=== PATIENT | male | born 1980 | race Caucasian/White ===

== ENCOUNTER 2017-06-13 18:57 | Emergency (ER) | payer OTHER ==
[2017-06-13 19:12] VITALS: BP 166/91; PULSE 94; RESP 18; TEMP 98.2
[2017-06-13] MEDS ORDERED: DIPH,PERTUS(ACELL)TETVAC-LF 0.5 ML VIAL IM ONE (19:16)
--- NOTE | 2017-06-13 19:37 | ED ---
General Adult HPI - General Chief complaint: Wound/Laceration Stated complaint: Dog Bite Time Seen by Provider: 06/13/17 19:09 Source: patient, RN notes reviewed Mode of arrival: ambulatory Limitations: no limitations - History of Present Illness Initial comments: 37-year-old male presents to the emergency department with a chief complaint of right wrist laceration/dog bite. Patient was bit by a pit bull today. He does not recall his last tetanus. The dog is up-to-date on vaccinations. He states he has pain to the right basal he thought that he should be seen. Patient denies any other injuries at this time.Patient denies any recent fever, chills, shortness of breath, chest pain, back pain, abdominal pain, nausea vomiting, numbness or tingling, dysuria or hematuria, constipation or diarrhea, headaches or visual changes, or any other current symptoms. - Related Data Home Medications Medication Instructions Recorded Confirmed Dextroamphetamine/Amphetamine 20 mg PO TID 11/30/15 08/24/16 [Adderall] Previous Rx's Medication Instructions Recorded Famotidine [Pepcid] 20 mg PO BID #10 tablet 08/24/16 hydrOXYzine HCL [Atarax] 25 mg PO QID PRN #30 tab 08/24/16 predniSONE 20 mg PO BID #10 tab 08/24/16 Amoxicillin/Potassium Clav 1 tab PO Q12HR #20 tab 06/13/17 [Augmentin 875-125 Tablet] Allergies Allergy/AdvReac Type Severity Reaction Status Date / Time OLD SPICE DEODORANT AdvReac Rash/Hives Uncoded 06/13/17 19:12 Review of Systems ROS Statement: Those systems with pertinent positive or pertinent negative responses have been documented in the HPI. ROS Other: All systems not noted in ROS Statement are negative. Past Medical History Past Medical History: Asthma Additional Past Medical History / Comment(s): ULCERATIVE COLITIS History of Any Multi-Drug Resistant Organisms: None Reported Past Surgical History: Appendectomy Past Psychological History: ADD/ADHD Smoking Status: Never smoker Past Alcohol Use History: None Reported Past Drug Use History: None Reported General Exam - General Exam Comments Initial Comments: General: The patient is awake and alert, in no distress, and does not appear acutely ill. Neck: The neck is supple, there is no tenderness. Cardiovascular: There is a regular rate and rhythm. No murmur, rub or gallop is appreciated. Respiratory: Lungs are clear to auscultation, respirations are non-labored, breath sounds are equal. No wheezes, stridor, rales, or rhonchi. Musculoskeletal: Sensation intact with 2+ pulses. Extremities range of motion of the right elbow. Patient has pain and a 0.5 from a laceration to the right wrist. No tenderness over the medial or lateral aspects. Full range of motion of the right hand. Neurological: CN II-XII intact, There are no obvious motor or sensory deficits. Coordination appears grossly intact. Speech is normal. Skin: Skin is warm and dry and no rashes or lesions are noted. Psychiatric: Normal mood and affect. Limitations: no limitations Course Vital Signs 06/13/17 19:09 Temperature 98.2 F Pulse Rate 94 Respiratory 18 Rate Blood Pressure 166/91 O2 Sat by Pulse 94 L Oximetry Medical Decision Making - Medical Decision Making 37-year-old male presents to the right wrist. This time we discussed care of the laceration was then given antibiotics. We did thoroughly irrigate the area. The patient stated that he understood and he is given plan. All questions have been answered. Essentially discharged. - Radiology Data Radiology results: report reviewed, image reviewed Disposition Clinical Impression: Dog bite of right wrist Disposition: HOME SELF-CARE Condition: Stable Instructions: Animal Bite (ED) Additional Instructions: Please use medication as discussed. Please follow up with family doctor if symptoms have not improved over the next two days. Please return to the emergency room if your symptoms increase or worsen or for any other concerns. Prescriptions: Amoxicillin/Potassium Clav [Augmentin 875-125 Tablet] 1 tab PO Q12HR #20 tab Referrals: Odilia Granda MD [STAFF PHYSICIAN] - 1-2 days Time of Disposition: 19:43
--- NOTE | 2017-06-13 19:42 | XR ---
EXAMINATION TYPE: XR wrist complete RT DATE OF EXAM: 06/13/2017 COMPARISON: NONE HISTORY: Laceration TECHNIQUE: 4 views FINDINGS: I see no fracture nor dislocation. Carpal bones are intact. Joint spaces are normal. IMPRESSION: Negative right wrist exam.
== END 2017-06-13 19:48 | disposition home or self-care (01) ==
LOC: EC 18:57
DX: S61.511A Laceration without foreign body of right wrist, initial encounter (principal); F90.9 Attention-deficit hyperactivity disorder, unspecified type; Z23 Encounter for immunization; Z91.09 Other allergy status, other than to drugs and biological substances; Z79.899 Other long term (current) drug therapy; W54.0XXA Bitten by dog, initial encounter
CPT/HCPCS: 90471; 90715; 99283

== ENCOUNTER 2018-02-25 21:13 | Emergency (ER) | payer OTHER ==
[2018-02-25] MEDS ORDERED: ONDANSETRON 4 MG/2 ML VIAL IVP STA (22:16)
[2018-02-25] MEDS ORDERED: SODIUM CHLORIDE 0.9% 1,000 ML IV STA ×2 (22:16)
[2018-02-25] MEDS ORDERED: KETOROLAC 30 MG/ML 1 ML VIAL IVP STA (22:18)
[2018-02-25 22:37] LABS: Basophils # (A) 0.1 k/uL (0-0.2); Basophils % (A) 1 %; Eosinophils # (A) 0.3 k/uL (0-0.7); Eosinophils % (A) 6 %; HCT 46.5 % (39.0-53.0); HGB 15.9 gm/dL (13.0-17.5); Lymphocytes # (A) 1.9 k/uL (1.0-4.8); Lymphocytes % (A) 33 %; MCH 28.1 pg (25.0-35.0); MCHC 34.1 g/dL (31.0-37.0); MCV 82.3 fL (80.0-100.0); Mean Platelet Volume 6.4; Monocytes # (A) 0.3 k/uL (0-1.0); Monocytes % (A) 6 %; Neutrophils # (A) 3.1 k/uL (1.3-7.7); Neutrophils % (A) 53 %; Platelet Count 239 k/uL (150-450); RBC 5.66 m/uL (4.30-5.90); RDW 12.9 % (11.5-15.5); WBC 5.8 k/uL (3.8-10.6)
[2018-02-25 22:49] LABS: ALT 40 U/L (21-72); AST 29 U/L (17-59); Albumin 4.6 g/dL (3.5-5.0); Alkaline Phosphatase 55 U/L (38-126); Amylase 41 U/L (30-110); Anion Gap 13 mmol/L; Blood Urea Nitrogen 20 mg/dL (9-20); Calcium 9.2 mg/dL (8.4-10.2); Carbon Dioxide 29 mmol/L (22-30); Chloride 100 mmol/L (98-107); Glucose 88 mg/dL (74-99); Lipase 22 U/L (23-300); Potassium 3.4 mmol/L (3.5-5.1); Sodium 142 mmol/L (137-145); Total Protein 7.2 g/dL (6.3-8.2)
--- NOTE | 2018-02-25 23:07 | XR ---
EXAMINATION TYPE: XR KUB DATE OF EXAM: 02/25/2018 COMPARISON: NONE HISTORY: Nausea and vomiting TECHNIQUE: 2 views FINDINGS: There is no sign of intestinal obstruction or pneumoperitoneum. Bowel gas pattern is normal . Fecal pattern is normal. There are no pathologic calcifications over the kidneys. Lung bases are cl ear. IMPRESSION: Nonacute abdomen.
--- NOTE | 2018-02-25 23:07 | XR ---
EXAMINATION TYPE: XR lumbar spine 2 or 3V DATE OF EXAM: 02/25/2018 COMPARISON: NONE HISTORY: Nausea and vomiting TECHNIQUE: 3 views FINDINGS: Lumbar vertebra have normal spacing and alignment. Posterior elements are intact. Sacroilia c joints appear normal. IMPRESSION: Normal lumbar spine exam.
[2018-02-25 23:17] VITALS: RESP 18
--- NOTE | 2018-02-25 23:27 | ED ---
Nausea/Vomiting/Diarrhea HPI - General Chief complaint: Nausea/Vomiting/Diarrhea Stated complaint: nausea/vomiting Time Seen by Provider: 02/25/18 22:00 Source: patient, RN notes reviewed, old records reviewed Mode of arrival: wheelchair Limitations: no limitations - History of Present Illness Initial comments: 37-year-old male presents with one evening of nausea and vomiting. Also complains of lower back pain. Patient has had a stressful week after his siblings were diagnosed with stroke. Patient states that he has no specific abdominal pain. He denies any hematuria. He stated the back pain is worse with movement. When I walked into the exam room he was actively vomiting. - Related Data Home Medications Medication Instructions Recorded Confirmed Dextroamphetamine/Amphetamine 20 mg PO TID 11/30/15 08/24/16 [Adderall] Previous Rx's Medication Instructions Recorded Famotidine [Pepcid] 20 mg PO BID #10 tablet 08/24/16 hydrOXYzine HCL [Atarax] 25 mg PO QID PRN #30 tab 08/24/16 predniSONE 20 mg PO BID #10 tab 08/24/16 Amoxicillin/Potassium Clav 1 tab PO Q12HR #20 tab 06/13/17 [Augmentin 875-125 Tablet] Ondansetron Odt [Zofran Odt] 4 mg PO Q8HR PRN #12 tab 02/26/18 Allergies Allergy/AdvReac Type Severity Reaction Status Date / Time OLD SPICE DEODORANT AdvReac Rash/Hives Uncoded 06/13/17 19:12 Review of Systems ROS Statement: Those systems with pertinent positive or pertinent negative responses have been documented in the HPI. ROS Other: All systems not noted in ROS Statement are negative. Past Medical History Past Medical History: Asthma Additional Past Medical History / Comment(s): ULCERATIVE COLITIS, pts reports one time seizure 2014 History of Any Multi-Drug Resistant Organisms: None Reported Past Surgical History: Appendectomy Past Psychological History: ADD/ADHD Smoking Status: Never smoker Past Alcohol Use History: None Reported Past Drug Use History: None Reported General Exam - General Exam Comments Initial Comments: This is a 37 year old male, no acute distress. Limitations: no limitations General appearance: alert, in no apparent distress Head exam: Present: atraumatic, normocephalic, normal inspection Eye exam: Present: normal appearance, PERRL, EOMI. Absent: scleral icterus, conjunctival injection, periorbital swelling ENT exam: Present: normal exam, mucous membranes moist Neck exam: Present: normal inspection. Absent: tenderness, meningismus, lymphadenopathy Respiratory exam: Present: normal lung sounds bilaterally. Absent: respiratory distress, wheezes, rales, rhonchi, stridor Cardiovascular Exam: Present: regular rate, normal rhythm, normal heart sounds. Absent: systolic murmur, diastolic murmur, rubs, gallop, clicks GI/Abdominal exam: Present: soft, normal bowel sounds. Absent: distended, tenderness, guarding, rebound, rigid Extremities exam: Present: normal inspection, full ROM, normal capillary refill. Absent: tenderness, pedal edema, joint swelling, calf tenderness Back exam: Present: normal inspection Neurological exam: Present: alert, oriented X3, CN II-XII intact Psychiatric exam: Present: normal affect, normal mood Skin exam: Present: warm, dry, intact, normal color. Absent: rash Course Vital Signs 02/25/18 02/25/18 02/26/18 21:24 23:15 00:44 Temperature 97.4 F L 97.1 F L Pulse Rate 94 81 70 Respiratory 16 18 18 Rate Blood Pressure 129/84 122/62 125/64 O2 Sat by Pulse 98 98 96 Oximetry Medical Decision Making - Medical Decision Making 37-year-old male presents with nausea and vomiting. Also complains and can't go back pain. Patient's lab work was reviewed and I remarkable. Your analysis shows no hematuria. Patient was given Toradol and Zofran and is feeling much better. At this time he says he would like to go home. Discussed appropriate follow-up. - Lab Data Result diagrams: 02/25/18 22:25 02/25/18 22:25 Lab Results 02/25/18 02/25/18 02/25/18 Range/Units 22:25 22:25 23:51 WBC 5.8 (3.8-10.6) k/uL RBC 5.66 (4.30-5.90) m/uL Hgb 15.9 (13.0-17.5) gm/dL Hct 46.5 (39.0-53.0) % MCV 82.3 (80.0-100.0) fL MCH 28.1 (25.0-35.0) pg MCHC 34.1 (31.0-37.0) g/dL RDW 12.9 (11.5-15.5) % Plt Count 239 (150-450) k/uL Neutrophils % 53 % Lymphocytes % 33 % Monocytes % 6 % Eosinophils % 6 % Basophils % 1 % Neutrophils # 3.1 (1.3-7.7) k/uL Lymphocytes # 1.9 (1.0-4.8) k/uL Monocytes # 0.3 (0-1.0) k/uL Eosinophils # 0.3 (0-0.7) k/uL Basophils # 0.1 (0-0.2) k/uL Sodium 142 (137-145) mmol/L Potassium 3.4 L (3.5-5.1) mmol/L Chloride 100 (98-107) mmol/L Carbon Dioxide 29 (22-30) mmol/L Anion Gap 13 mmol/L BUN 20 (9-20) mg/dL Creatinine 0.77 (0.66-1.25) mg/dL Est GFR (CKD-EPI)AfAm >90 (>60 ml/min/1.73 sqM) Est GFR (CKD-EPI)NonAf >90 (>60 ml/min/1.73 sqM) Glucose 88 (74-99) mg/dL Calcium 9.2 (8.4-10.2) mg/dL Total Bilirubin 1.0 (0.2-1.3) mg/dL AST 29 (17-59) U/L ALT 40 (21-72) U/L Alkaline Phosphatase 55 (38-126) U/L Total Protein 7.2 (6.3-8.2) g/dL Albumin 4.6 (3.5-5.0) g/dL Amylase 41 (30-110) U/L Lipase 22 L (23-300) U/L Urine Color Yellow Urine Appearance Clear (Clear) Urine pH 6.0 (5.0-8.0) Ur Specific [place] 1.029 (1.001-1.035) Urine Protein Trace H (Negative) Urine Glucose (UA) Negative (Negative) Urine Ketones 1+ H (Negative) Urine Blood Negative (Negative) Urine Nitrite Negative (Negative) Urine Bilirubin Negative (Negative) Urine Urobilinogen <2.0 (<2.0) mg/dL Ur Leukocyte Esterase Negative (Negative) - Radiology Data Radiology results: report reviewed Can you please review the negative for any acute process. Lumbar spine x-ray showed no fractures. Disposition Clinical Impression: Nausea & vomiting, Back pain Disposition: HOME SELF-CARE Condition: Good Instructions: Acute Nausea and Vomiting (ED) Additional Instructions: Patient has developed with primary care provider. Return to emergency department if any alarming signs or symptoms occur. Prescriptions: Ondansetron Odt [Zofran Odt] 4 mg PO Q8HR PRN #12 tab PRN Reason: Nausea Is patient prescribed a controlled substance at d/c from ED?: No When asked, does pt state using other controlled substances?: No If prescribed controlled substance>3 days was MAPS reviewed?: No If opioid is for acute pain is fill amount 7 days or less?: No If Rx opioid, was Start Talking consent form obtained?: No Referrals: None,Stated [Primary Care Provider] - 1-2 days Bhavik Keenan MD [STAFF PHYSICIAN] - 1-2 days Time of Disposition: 00:29
[2018-02-26 00:05] LABS: Appearance,Urine Clear (Clear); Bilirubin,Urine Negative (Negative); Blood,Urine Negative (Negative); Color,Urine Yellow; Glucose,Urine (UA) Negative (Negative); Ketones,Urine 1+ (Negative); Leukocyte Esterase,Urine Negative (Negative); Nitrite,Urine Negative (Negative); Protein,Urine Trace (Negative); Specific Gravity,Urine 1.029 (1.001-1.035); Urobilinogen,Urine <2.0 mg/dL (<2.0)
[2018-02-26 00:45] VITALS: BP 125/64; PULSE 70; TEMP 97.1
== END 2018-02-26 00:45 | disposition home or self-care (01) ==
LOC: EC 21:13
DX: R11.2 Nausea with vomiting, unspecified (principal); M54.5 Low back pain; F90.9 Attention-deficit hyperactivity disorder, unspecified type; Z90.49 Acquired absence of other specified parts of digestive tract; Z79.899 Other long term (current) drug therapy; Z91.048 Other nonmedicinal substance allergy status
CPT/HCPCS: 99284; 96374; 96375; 96361 ×2; 36415; 80053; 82150; 83690; 85025; 81003; 72100; 74018; J2405; J1885

== ENCOUNTER 2018-05-01 01:13 | Observation (INO) | payer OTHER ==
[2018-05-01] MEDS ORDERED: SODIUM CHLORIDE 0.9% 1,000 ML IV STA (02:33)
[2018-05-01] MEDS ORDERED: ONDANSETRON 4 MG/2 ML VIAL IVP STA (02:33)
[2018-05-01] MEDS ORDERED: MORPHINE SULFATE 4 MG/ML SYRINGE IV STA (02:33)
--- NOTE | 2018-05-01 02:37 | ED ---
Abdominal Pain HPI - General Source: patient Mode of arrival: wheelchair Limitations: no limitations <Sanam Hwang - Last Filed: 05/01/18 04:19> <Arnie Gutierrez - Last Filed: 05/01/18 04:33> - General Chief Complaint: Abdominal Pain Stated Complaint: rib pain,swelling,blood in stool Time Seen by Provider: 05/01/18 01:35 - History of Present Illness Initial Comments: 38-year-old male patient presents the emergency department today for evaluation of left sided mid back pain and lower back pain. Patient states that pain started around 9 PM this evening. Patient states the pain has been severe. Patient states that he has been vomiting over the last couple of days. Patient states he did take ibuprofen and [place] without relief of symptoms. Patient states that he did have a bowel movement the did have a presence of a small amount of blood. Patient states that his anus feels numb. Patient does have a history of chronic back issues but has never experienced any thing like this before. Patient denies any numbness or tingling radiating down his legs. Denies any loss of bowel or bladder control. Denies any saddle anesthesia. Denies any fevers or chills. He denies any abdominal pain with this. States he has been urinating frequently. Patient denies any recent rash, shortness breath , chest pain, abdominal pain, dizziness, weakness, hematuria, dysuria, urinary urgency, headache, visual changes, or any other complaints. (Sanam Hwang) - Related Data Home Medications Medication Instructions Recorded Confirmed No Known Home Medications 05/01/18 05/01/18 Allergies Allergy/AdvReac Type Severity Reaction Status Date / Time OLD SPICE DEODORANT AdvReac Rash/Hives Uncoded 05/01/18 01:24 Review of Systems ROS Other: All systems not noted in ROS Statement are negative. <Sanam Hwang - Last Filed: 05/01/18 04:19> ROS Other: All systems not noted in ROS Statement are negative. <Arnie Gutierrez - Last Filed: 05/01/18 04:33> ROS Statement: Those systems with pertinent positive or pertinent negative responses have been documented in the HPI. Past Medical History Past Medical History: Asthma Additional Past Medical History / Comment(s): ULCERATIVE COLITIS, pts reports one time seizure 2014 History of Any Multi-Drug Resistant Organisms: None Reported Past Surgical History: Appendectomy Past Psychological History: ADD/ADHD Smoking Status: Never smoker Past Alcohol Use History: None Reported Past Drug Use History: None Reported <Sanam Hwang Dez - Last Filed: 05/01/18 04:19> General Exam Limitations: no limitations General appearance: alert, in no apparent distress, other (Physical well- developed, well-nourished male patient in mild distress related to pain. Vital signs upon presentation are temperature 98.3F, pulse 129, respirations 22, blood pressure 135/95, pulse ox 98% on room air.) Eye exam: Present: normal appearance, PERRL, EOMI. Absent: scleral icterus, conjunctival injection, periorbital swelling ENT exam: Present: normal exam, normal oropharynx, mucous membranes moist Respiratory exam: Present: normal lung sounds bilaterally. Absent: respiratory distress, wheezes, rales, rhonchi, stridor Cardiovascular Exam: Present: regular rate, normal rhythm, normal heart sounds. Absent: systolic murmur, diastolic murmur, rubs, gallop, clicks GI/Abdominal exam: Present: soft, normal bowel sounds. Absent: distended, tenderness, guarding, rebound, rigid Rectal exam: Present: decreased rectal tone Back exam: Present: normal inspection, CVA tenderness (R), vertebral tenderness (lumbar). Absent: CVA tenderness (L) Neurological exam: Present: alert, oriented X3, CN II-XII intact Expanded Motor strength exam: RUE: 5, LUE: 5, RLE: 5, LLE: 5 Psychiatric exam: Present: normal affect, normal mood Skin exam: Present: warm, dry, intact, normal color. Absent: rash <Sanam Hwang M - Last Filed: 05/01/18 04:19> Vital Signs 05/01/18 01:21 Temperature 98.3 F Pulse Rate 129 H Respiratory 22 Rate Blood Pressure 135/95 O2 Sat by Pulse 98 Oximetry Medical Decision Making - Lab Data Result diagrams: 05/01/18 01:55 05/01/18 01:55 - Radiology Data Radiology results: report reviewed, image reviewed <Sanam Hwang - Last Filed: 05/01/18 04:19> - Lab Data Result diagrams: 05/01/18 01:55 05/01/18 01:55 <Arnie Gutierrez - Last Filed: 05/01/18 04:33> - Medical Decision Making 38 year-old male patient presented to the emergency department today for evaluation of left sided back pain from his ribs down, and pain across his lower back. Patient also reported radicular pain to the left leg and perianal numbness. Physical exam was significant for lumbar tenderness and decreased rectal tone. Labs were reviewed and were unremarkable. CT abdomen and pelvis to include the lumbar spine showed no acute abnormalities. Upon re-evaluation patient remains quite uncomfortable. Still reports perianal numbness. Given physical exam findings we will admit patient with orthopedic consult. IV pain medications and steroids will be provided. Patient is made aware of plan and is agreeable. (Sanam Hwang) Patient reevaluated by myself, Dr. Gutierrez. Patient resting comfortably in bed. Patient denies weakness however states he does have significant back discomfort. Patient states this is not like his previous back discomfort. Discomfort is in the lumbar region and lateral as well as somewhat in the CVA region. Patient states discomfort is positional. I reviewed and agree with PA findings. This includes all diagnostics limitations and treatment plan. Computed tomography scan results was reviewed. Secondary to patient having somewhat decreased rectal tone on exam and patient will be admitted with consult with orthopedics. Case was discussed in detail with Dr. Contreras, who will admit for hospital call. Patient was updated. (Arnie Gutierrez) - Lab Data Lab Results 05/01/18 05/01/18 05/01/18 Range/Units 01:55 01:55 03:18 WBC 9.0 (3.8-10.6) k/uL RBC 5.55 (4.30-5.90) m/uL Hgb 15.4 (13.0-17.5) gm/dL Hct 44.6 (39.0-53.0) % MCV 80.4 (80.0-100.0) fL MCH 27.8 (25.0-35.0) pg MCHC 34.6 (31.0-37.0) g/dL RDW 12.3 (11.5-15.5) % Plt Count 280 (150-450) k/uL Neutrophils % 66 % Lymphocytes % 25 % Monocytes % 6 % Eosinophils % 2 % Basophils % 1 % Neutrophils # 5.9 (1.3-7.7) k/uL Lymphocytes # 2.3 (1.0-4.8) k/uL Monocytes # 0.5 (0-1.0) k/uL Eosinophils # 0.2 (0-0.7) k/uL Basophils # 0.0 (0-0.2) k/uL Sodium 140 (137-145) mmol/L Potassium 4.0 (3.5-5.1) mmol/L Chloride 102 (98-107) mmol/L Carbon Dioxide 26 (22-30) mmol/L Anion Gap 12 mmol/L BUN 16 (9-20) mg/dL Creatinine 1.00 (0.66-1.25) mg/dL Est GFR (CKD-EPI)AfAm >90 (>60 ml/min/1.73 sqM) Est GFR (CKD-EPI)NonAf >90 (>60 ml/min/1.73 sqM) Glucose 128 H (74-99) mg/dL Calcium 9.9 (8.4-10.2) mg/dL Total Bilirubin 0.8 (0.2-1.3) mg/dL AST 33 (17-59) U/L ALT 36 (21-72) U/L Alkaline Phosphatase 54 (38-126) U/L Total Protein 7.8 (6.3-8.2) g/dL Albumin 4.9 (3.5-5.0) g/dL Amylase 45 (30-110) U/L Lipase 15 L (23-300) U/L Urine Color Yellow Urine Appearance Clear (Clear) Urine pH 7.0 (5.0-8.0) Ur Specific [place] 1.022 (1.001-1.035) Urine Protein Trace H (Negative) Urine Glucose (UA) Negative (Negative) Urine Ketones Trace H (Negative) Urine Blood Negative (Negative) Urine Nitrite Negative (Negative) Urine Bilirubin Negative (Negative) Urine Urobilinogen <2.0 (<2.0) mg/dL Ur Leukocyte Esterase Negative (Negative) - Radiology Data CT abdomen and pelvis without contrast was obtained. Report was reviewed in its entirety. Impression by doctor Jada shows no acute findings. (Sanam Hwang) Disposition Decision to Admit Reason: Admit from [facility] Decision Date: 05/01/18 Decision Time: 04:25 <Sanam Hwang - Last Filed: 05/01/18 04:19> <Arnie Gutierrez - Last Filed: 05/01/18 04:33> Clinical Impression: Intractable low back pain, Decreased rectal sphincter tone Disposition: ADMITTED IP TO THIS HOSP Condition: Serious Referrals: None,Stated [Primary Care Provider] - 1-2 days
[2018-05-01 02:41] LABS: Basophils % (A) 1 %; Eosinophils # (A) 0.2 k/uL (0-0.7); Eosinophils % (A) 2 %; HCT 44.6 % (39.0-53.0); HGB 15.4 gm/dL (13.0-17.5); Lymphocytes # (A) 2.3 k/uL (1.0-4.8); Lymphocytes % (A) 25 %; MCH 27.8 pg (25.0-35.0); MCHC 34.6 g/dL (31.0-37.0); MCV 80.4 fL (80.0-100.0); Mean Platelet Volume 7.2; Monocytes # (A) 0.5 k/uL (0-1.0); Monocytes % (A) 6 %; Neutrophils # (A) 5.9 k/uL (1.3-7.7); Neutrophils % (A) 66 %; Platelet Count 280 k/uL (150-450); RBC 5.55 m/uL (4.30-5.90); RDW 12.3 % (11.5-15.5)
[2018-05-01 02:52] LABS: ALT 36 U/L (21-72); AST 33 U/L (17-59); Albumin 4.9 g/dL (3.5-5.0); Alkaline Phosphatase 54 U/L (38-126); Amylase 45 U/L (30-110); Anion Gap 12 mmol/L; Blood Urea Nitrogen 16 mg/dL (9-20); Calcium 9.9 mg/dL (8.4-10.2); Carbon Dioxide 26 mmol/L (22-30); Chloride 102 mmol/L (98-107); Glucose 128 mg/dL (74-99); Lipase 15 U/L (23-300); Sodium 140 mmol/L (137-145); Total Bilirubin 0.8 mg/dL (0.2-1.3); Total Protein 7.8 g/dL (6.3-8.2)
--- NOTE | 2018-05-01 03:19 | XR ---
EXAMINATION TYPE: XR KUB DATE OF EXAM: 05/01/2018 COMPARISON: 02/17/2018 HISTORY: Flank pain TECHNIQUE: 2 views upright FINDINGS: There is no sign of intestinal obstruction or pneumoperitoneum. Fecal pattern is normal. Ka[place] ng bases are clear. There are no pathologic calcifications. IMPRESSION: Nonacute abdomen. No change.
[2018-05-01 03:34] LABS: Appearance,Urine Clear (Clear); Bilirubin,Urine Negative (Negative); Blood,Urine Negative (Negative); Color,Urine Yellow; Glucose,Urine (UA) Negative (Negative); Ketones,Urine Trace (Negative); Leukocyte Esterase,Urine Negative (Negative); Nitrite,Urine Negative (Negative); Protein,Urine Trace (Negative); Specific Gravity,Urine 1.022 (1.001-1.035); Urobilinogen,Urine <2.0 mg/dL (<2.0)
--- NOTE | 2018-05-01 04:08 | CT ---
EXAMINATION TYPE: CT abdomen pelvis wo con DATE OF EXAM: 05/01/2018 COMPARISON: None HISTORY: Pt. c/o LUQ pain and back pain CT DLP: 583.80 mGycm Automated exposure control for dose reduction was used. TECHNIQUE: Helical acquisition of images was performed from the lung bases through the pelvis. FINDINGS: Lung bases are clear. There is no pleural effusion. Heart size is normal. Liver spleen pancreas gallbladder appear normal. Bile ducts are not dilated. There is no adrenal mass. Kidneys show normal size and contour. There is no hydronephrosis. There is no retroperitoneal adenopathy. Bladder distends smoothly. There is no pelvic mass. There is no ascites. There is no free air. There is no intestinal wall thickening. There are no dilated loops. Appendix is not seen. There is no sign of appendicitis. The lumbar vertebra have normal spacing and alignment. Posterior elements are intact. There is no com pression fracture. There is no sign of lumbar spinal stenosis. IMPRESSION: NEGATIVE CT SCAN OF THE ABDOMEN AND PELVIS.
[2018-05-01] MEDS ORDERED: methylPREDNISolone SOD SUCCI 125 MG/2 ML VIAL IV STA (04:18)
[2018-05-01] MEDS ORDERED: NALOXONE 0.4 MG/ML 1 ML VIAL IV PRN (04:19)
[2018-05-01] MEDS ORDERED: KETOROLAC 30 MG/ML 1 ML VIAL IVP PRN (04:19)
[2018-05-01 05:24] VITALS: BMI 25.9
[2018-05-01] MEDS: methylPREDNISolone SOD SUCCI 125 MG/2 ML VIAL IV SCH ×4 (05:34→23:40)
[2018-05-01] MEDS: SODIUM CHLORIDE 0.9% 1,000 ML IV SCH (05:34)
[2018-05-01] MEDS: HYDROcodone/APAP 5-325MG 1 EACH TAB PO PRN ×5 (05:35→21:53)
--- NOTE | 2018-05-01 07:12 | HP ---
HISTORY AND PHYSICAL CHIEF COMPLAINT: A 38-year-old white male with left-sided midback pain, low back pain, came in to the emergency room due to severity. He is unable to have much of any relief to his back so he came to the emergency room. He did have a bowel movement. He had a small amount of blood in it he states, but mainly his legs are numb. His anus is numb. History of chronic back pain. Never experienced anything like this before. Denies any loss of bowel or bladder control or any , any fevers or chills negative. No abdominal pain, urinary frequency. No shortness of breath. No rashes, abdominal pain, weakness, dysuria, frequency, urgency, hesitancy, or visual changes. Urinalysis is negative on admission for UTI. He is admitted for neurosurgical evaluation for lack of to his anus and severe intractable back pain. Neurosurgical consultation. He is on home medications. Allergies are to OLD SPICE DEODORANT. REVIEW OF SYSTEMS: Fourteen point review of systems negative except for mentioned in HPI. PAST MEDICAL HISTORY: Asthma, ulcerative colitis and a seizure in 2014 one time. SURGERIES: Appendectomy. No smoking. No alcohol. No illicit drugs. PHYSICAL EXAMINATION: Temperature 98.3, pulse is low 100s, respiratory rate 18 to 22, blood pressure 135/95, O2 of 98% on room air. GI: Soft, nontender. No mass or organomegaly. Rectal is deferred to the ER showed decreased rectal tone. Back pain shows normal inspection. Some CVA tenderness on the right and lumbar tenderness bilaterally. Straight leg raise test positive left leg to 60 degrees, right leg 60 degrees. He has 5/5 strength. PSYCH: Fair mood and affect. SKIN: Warm, dry, intact. He is well developed, well nourished, in no acute distress. Vital signs reviewed. ENT within normal limits. Respiratory is clear. CARDIOVASCULAR: S1, S2. White count 9, hemoglobin 15.4. Sodium 140, potassium 4.0, BUN 16, creatinine 1.0. ASSESSMENT: Intractable back pain with radicular pain down the left leg and perianal numbness. CAT scan abdomen and pelvis include the lumbar spine, no abnormalities. Await neurosurgical evaluation and possible discharge home if cleared by them as CAT scan of the abdomen and pelvis MMODL / IJN: [id number] /
[2018-05-01] MEDS ORDERED: CYCLOBENZAPRINE 5 MG TAB PO PRN (08:02)
[2018-05-01] MEDS ORDERED: ONDANSETRON 4 MG/2 ML VIAL IVP PRN (08:03)
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
--- NOTE | 2018-05-01 12:05 | MR ---
EXAMINATION TYPE: MR lumbar spine wo/w con DATE OF EXAM: 05/01/2018 COMPARISON: 07/18/2010 HISTORY: 38-year-old male lower back pain Technique: Multiplanar, multisequence images of the lumbar spine were obtained before and after admin istration of 7.5 mL intravenous Gadavist gadolinium contrast. FINDINGS: Vertebral body heights are preserved and alignment is maintained. Prominent red marrow compatible with patient's relatively young age. No suspicious bone marrow replac ement. However, there are edematous Modic type I endplate changes towards the right at L4-L5. Degenerative disc disease L4-L5 has progressed from 2009 with further disc desiccation. Similar disc bulging and mild disc space narrowing. Tiny enhancing posterior annular fissure remains. There is no significant spinal canal or foraminal stenosis at any level. No large focal disc herniati on. No prevertebral paravertebral soft tissue abnormality seen. Conus medullaris is normal. IMPRESSION: 1. Redemonstrated degenerative disc disease at L4-L5. There is similar mild disc height loss and diff use disc bulging with a posterior annular fissure. However, the degree of disc desiccation has progre ssed and there is new edematous Modic type I endplate change towards the right. 2. No focal disc herniation or significant spinal canal or foraminal stenosis seen.
--- NOTE | 2018-05-01 12:13 | P.PN ---
Progress Note - Text Progress Note Date: 05/01/18 Patient refused consultation with Dr. Hurd
[2018-05-01] MEDS ORDERED: ZOLPIDEM 5 MG TAB PO PRN (22:16)
[2018-05-01] MEDS ORDERED: TEMAZEPAM 7.5 MG CAP PO PRN (22:39)
[2018-05-02] MEDS: SODIUM CHLORIDE 0.9% 1,000 ML IV SCH (04:28)
[2018-05-02] MEDS: methylPREDNISolone SOD SUCCI 125 MG/2 ML VIAL IV SCH ×2 (06:06→14:02)
[2018-05-02 07:38] VITALS: RESP 18
[2018-05-02] MEDS: HYDROcodone/APAP 5-325MG 1 EACH TAB PO PRN ×2 (08:42→14:03)
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
[2018-05-02 15:26] VITALS: BP 137/73; PULSE 104; TEMP 97
[2018-05-02] MEDS ORDERED: CYCLOBENZAPRINE 5 MG TAB PO SCH (16:00)
--- NOTE | 2018-05-20 07:10 | DS ---
DISCHARGE SUMMARY Admitted on 05/01/2018 Discharged on 05/02/2018. MEDICATIONS: None. DISCHARGE DIAGNOSES: 1. Acute left flank pain. 2. muscle spasm. Cleared by surgery. Cleared by GI. CAT scan of the abdomen showed no significant findings. Left-sided mid abdominal pain. Chronic lumbar pain. History of colitis, will be worked up as an outpatient for outpatient GI. Colonoscopy as an outpatient. MMODL / IJN: [id number] /
== END 2018-05-02 16:38 | disposition home or self-care (01) ==
LOC: EC 01:13 → 4MS4W 04:33
PROVIDERS: ADMIT Family Medicine; ATTEND Family Medicine
DX: M54.5 Low back pain (principal); G89.29 Other chronic pain; K62.89 Other specified diseases of anus and rectum; R10.9 Unspecified abdominal pain; K51.911 Ulcerative colitis, unspecified with rectal bleeding; J45.909 Unspecified asthma, uncomplicated; R20.0 Anesthesia of skin; R07.81 Pleurodynia; F90.9 Attention-deficit hyperactivity disorder, unspecified type; Z91.048 Other nonmedicinal substance allergy status; M51.16 Intervertebral disc disorders with radiculopathy, lumbar region; Z90.89 Acquired absence of other organs; Z86.69 Personal history of other diseases of the nervous system and sense organs
CPT/HCPCS: 96375 ×4; 96374 ×2; 99285 ×2; 96376 ×2; 99282; 36415; 80053; 82150; 83690; 85025; 81003; 74018; 74176; 72158; G0378 ×2; J2270; J2930 ×2; J2405; J1885; A9581

== ENCOUNTER 2018-05-02 18:30 | Emergency (ER) | payer OTHER ==
[2018-05-02 18:58] VITALS: BP 143/90; PULSE 102; RESP 18; TEMP 98.2
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
== END 2018-05-02 19:38 | disposition home or self-care (01) ==
LOC: EC 18:30
DX: Z76.0 Encounter for issue of repeat prescription (principal); Z91.048 Other nonmedicinal substance allergy status
CPT/HCPCS: 99282

== ENCOUNTER 2018-12-07 17:32 | Emergency (ER) | payer OTHER ==
[2018-12-07 17:44] VITALS: RESP 18; TEMP 97.9
[2018-12-07] MEDS ORDERED: ONDANSETRON 4 MG/2 ML VIAL IVP STA (18:14)
[2018-12-07] MEDS ORDERED: SODIUM CHLORIDE 0.9% 1,000 ML IV STA (18:14)
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
[2018-12-07 18:48] LABS: Basophils % (A) 1 %; Eosinophils # (A) 0.2 k/uL (0-0.7); Eosinophils % (A) 2 %; HCT 45.7 % (39.0-53.0); HGB 15.1 gm/dL (13.0-17.5); Lymphocytes # (A) 1.8 k/uL (1.0-4.8); Lymphocytes % (A) 18 %; MCHC 33.1 g/dL (31.0-37.0); MCV 84.5 fL (80.0-100.0); Mean Platelet Volume 6.6; Monocytes # (A) 0.5 k/uL (0-1.0); Monocytes % (A) 5 %; Neutrophils # (A) 7.3 k/uL (1.3-7.7); Neutrophils % (A) 74 %; Platelet Count 256 k/uL (150-450); RBC 5.41 m/uL (4.30-5.90); RDW 12.7 % (11.5-15.5); WBC 9.9 k/uL (3.8-10.6)
[2018-12-07 19:00] LABS: ALT 34 U/L (21-72); AST 34 U/L (17-59); Albumin 4.9 g/dL (3.5-5.0); Alkaline Phosphatase 62 U/L (38-126); Anion Gap 10 mmol/L; Blood Urea Nitrogen 28 mg/dL (9-20); Calcium 10.3 mg/dL (8.4-10.2); Carbon Dioxide 28 mmol/L (22-30); Chloride 100 mmol/L (98-107); Glucose 93 mg/dL (74-99); Potassium 4.4 mmol/L (3.5-5.1); Sodium 138 mmol/L (137-145); Total Bilirubin 1.1 mg/dL (0.2-1.3); Total Protein 7.9 g/dL (6.3-8.2)
--- NOTE | 2018-12-07 19:17 | XR ---
EXAMINATION TYPE: XR KUB DATE OF EXAM: 12/07/2018 7:03 PM CLINICAL HISTORY: Vomiting and abdominal pain TECHNIQUE: Single upright image of the abdomen is obtained. COMPARISON: 05/20/2018. FINDINGS: For loculated densities within the left mid abdomen and to a lesser degree in the right mid abdomen likely related to ingested hyperdense substance such as Pepto-Bismol. Less likely renal calc ifications could be present. Lung bases are well aerated. No dilated large or small bowel. Moderate a mount retained colonic stool. Osseous structures are intact. IMPRESSION: Flocculated hyperdense material throughout the abdomen likely relates to radiopaque inges latoya substance such as Pepto-Bismol. Alternatively renal calcifications are possible. Moderate amount retained colonic stool. Nonobstructive bowel gas pattern.
[2018-12-07 20:29] VITALS: BP 105/84; PULSE 115
== END 2018-12-07 20:28 | disposition home or self-care (01) ==
LOC: EC 17:32
DX: R11.2 Nausea with vomiting, unspecified (principal); K56.41 Fecal impaction; Z91.048 Other nonmedicinal substance allergy status; Z87.19 Personal history of other diseases of the digestive system; Z90.49 Acquired absence of other specified parts of digestive tract; Z53.29 Procedure and treatment not carried out because of patient's decision for other reasons
CPT/HCPCS: 36415; 80053; 83690; 85025; 87502; 74018; 99284; 96374; 96361 ×2; J2405

== ENCOUNTER 2019-05-06 23:37 | Emergency (ER) | payer OTHER ==
[2019-05-06 23:42] VITALS: RESP 18; TEMP 98.7
[2019-05-07] MEDS ORDERED: MORPHINE SULFATE 4 MG/ML SYRINGE IVP STA (00:10)
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
[2019-05-07 00:36] LABS: Basophils # (A) 0.1 k/uL (0-0.2); Basophils % (A) 1 %; Eosinophils # (A) 0.3 k/uL (0-0.7); Eosinophils % (A) 3 %; HCT 42.6 % (39.0-53.0); HGB 14.7 gm/dL (13.0-17.5); Lymphocytes # (A) 2.4 k/uL (1.0-4.8); Lymphocytes % (A) 23 %; MCH 28.1 pg (25.0-35.0); MCHC 34.4 g/dL (31.0-37.0); MCV 81.6 fL (80.0-100.0); Mean Platelet Volume 6.8; Monocytes # (A) 0.6 k/uL (0-1.0); Monocytes % (A) 6 %; Neutrophils # (A) 6.8 k/uL (1.3-7.7); Neutrophils % (A) 66 %; Platelet Count 230 k/uL (150-450); RBC 5.22 m/uL (4.30-5.90); RDW 12.9 % (11.5-15.5); WBC 10.3 k/uL (3.8-10.6)
[2019-05-07 00:48] LABS: ALT 31 U/L (21-72); AST 35 U/L (17-59); African American GFR (CKD) >90 (>60 ml/min/1.73 sqM); Albumin 4.9 g/dL (3.5-5.0); Alkaline Phosphatase 58 U/L (38-126); Anion Gap 13 mmol/L; Blood Urea Nitrogen 19 mg/dL (9-20); Calcium 9.8 mg/dL (8.4-10.2); Carbon Dioxide 25 mmol/L (22-30); Chloride 104 mmol/L (98-107); Glucose 91 mg/dL (74-99); Potassium 3.5 mmol/L (3.5-5.1); Sodium 142 mmol/L (137-145); Total Bilirubin 1.1 mg/dL (0.2-1.3); Total Protein 7.9 g/dL (6.3-8.2)
--- NOTE | 2019-05-07 01:14 | XR ---
EXAM: XR Chest, 1 View CLINICAL HISTORY: Pain TECHNIQUE: Frontal view of the chest. COMPARISON: 05/25/14 FINDINGS: Lungs: Unremarkable. No consolidation. Pleural space: Unremarkable. No pneumothorax. Heart: Unremarkable. No cardiomegaly. Mediastinum: Unremarkable. Bones/joints: Unremarkable. IMPRESSION: Normal chest x-ray.
--- NOTE | 2019-05-07 01:15 | XR ---
EXAM: XR Pelvis, 1 or 2 Views CLINICAL HISTORY: Pain TECHNIQUE: Frontal view of the pelvis, frontal and lateral views of right hip. COMPARISON: No relevant prior studies available. FINDINGS: Bones/joints: Unremarkable. No fracture. No dislocation. Soft tissues: Unremarkable. IMPRESSION: No fracture
--- NOTE | 2019-05-07 01:20 | CT ---
EXAM: CT Lumbar Spine Without Intravenous Contrast CLINICAL HISTORY: ITS.REASON CT Reason: Pain TECHNIQUE: Axial computed tomography images of the lumbar spine without intravenous contrast. CTDI is 33.97 mGy and DLP is 1112 mGy-cm. This CT exam was performed using one or more of the following dose reduction techniques: automated exposure control, adjustment of the mA and/or kV according to patient size, and/or use of iterative reconstruction technique. Coronal and sagittal reconstructions are performed COMPARISON: No relevant prior studies available. FINDINGS: Vertebrae: Unremarkable. No acute fracture. Discs/spinal canal/neural foramina: No acute findings. No spinal canal stenosis. Soft tissues: Unremarkable. IMPRESSION: no acute findings
[2019-05-07 02:16] VITALS: BP 136/72; PULSE 100
== END 2019-05-07 02:05 | disposition home or self-care (01) ==
LOC: EC 23:37
DX: S76.011A Strain of muscle, fascia and tendon of right hip, initial encounter (principal); Z88.5 Allergy status to narcotic agent; Z91.048 Other nonmedicinal substance allergy status; W01.0XXA Fall on same level from slipping, tripping and stumbling without subsequent striking against object, initial encounter
CPT/HCPCS: 36415; 80053; 85025; 73502; 71045; 72131; 99284; 96374; J2270

== ENCOUNTER 2019-07-09 10:10 | Emergency (ER) | payer OTHER ==
[2019-07-09 10:25] VITALS: RESP 18
[2019-07-09] MEDS ORDERED: MORPHINE SULFATE 4 MG/ML SYRINGE IVP STA (10:48)
[2019-07-09] MEDS ORDERED: ONDANSETRON 4 MG/2 ML VIAL IVP STA (10:49)
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
[2019-07-09 11:12] LABS: Appearance,Urine Clear (Clear); Bilirubin,Urine Negative (Negative); Blood,Urine Negative (Negative); Color,Urine Colorless; Glucose,Urine (UA) Negative (Negative); Ketones,Urine Negative (Negative); Leukocyte Esterase,Urine Negative (Negative); Nitrite,Urine Negative (Negative); PH, Urine 6.5 (5.0-8.0); Protein,Urine Negative (Negative); Specific Gravity,Urine 1.002 (1.001-1.035); Urobilinogen,Urine <2.0 mg/dL (<2.0)
[2019-07-09 11:35] VITALS: BP 135/83; PULSE 94
--- NOTE | 2019-07-09 11:38 | CT ---
EXAMINATION TYPE: CT lumbar spine wo con DATE OF EXAM: 07/09/2019 11:25 AM COMPARISON: MRI of the lumbar spine dated 05/20/2018 CT of the lumbar spine dated 05/07/2019. HISTORY: Back pain. Acute back pain radiating down the right lower extremity. CT DLP: 849.6 mGycm Automated exposure control for dose reduction was used. TECHNIQUE: Unenhanced CT of the lumbar spine was performed. Bone and soft tissue window settings are submitted as well as coronal and sagittal reconstructions. FINDINGS: Schmorl's node is seen in the inferior endplate of L4 with surrounding sclerosis unchanged from 05/07/2019. Lumbar spine vertebral body heights are maintained and within normal limits. Slight sc lerosis of the posterior aspect of the superior endplate of S1 is also on the basis of degenerative d isc disease unchanged from the prior, nonacute. On the coronal views similar findings are seen of the superior endplate of L5. Very mild levoscoliosis is noted on the coronal view. Patient motion limits the images. Evaluation of the spinal canal is limited on CT. L1-L2: Normal disc space height. No disc herniation protrusion or central stenosis. No facet joint arthropathy. No evidence for foraminal encroachment. L2-L3: Broad-based disc bulge is seen resulting in very minimal bilateral neural foraminal narrowing. No spinal canal stenosis. L3-L4: Broad-based disc bulge is seen resulting in mild bilateral neural foraminal narrowing without spinal canal stenosis. L4-L5: Right eccentric broad-based disc bulge results in mild bilateral neural foraminal narrowing. N o spinal canal stenosis. L5-S1: Small broad-based disc bulge results in minimal bilateral neural foraminal narrowing without s marylou canal stenosis. IMPRESSION: No acute fracture or malalignment of the lumbar spine. Mild degenerative disc disease of the lumbar s pine is seen on the prior CT of 05/07/2019 and MRI of 05/01/2018. MRI however would be better suited to e valuate for disc herniation.
[2019-07-09 12:26] VITALS: TEMP 98.4
== END 2019-07-09 12:27 | disposition home or self-care (01) ==
LOC: EC 10:10
DX: M51.26 Other intervertebral disc displacement, lumbar region (principal); R11.0 Nausea; Z88.5 Allergy status to narcotic agent; Z91.048 Other nonmedicinal substance allergy status
CPT/HCPCS: 81003; 72131; 99284; 96374; 96375; J2270; J2405

== ENCOUNTER 2019-07-24 18:05 | Emergency (ER) | payer OTHER ==
[2019-07-24 18:36] VITALS: RESP 18; TEMP 98.1
[2019-07-24] MEDS ORDERED: SODIUM CHLORIDE 0.9% 500 ML 500 ML IV STA (18:49)
[2019-07-24 19:32] VITALS: BP 147/87; PULSE 104
[2019-07-24 19:42] LABS: Basophils # (A) 0.1 k/uL (0-0.2); Basophils % (A) 1 %; Eosinophils # (A) 0.2 k/uL (0-0.7); Eosinophils % (A) 3 %; HCT 41.8 % (39.0-53.0); HGB 14.6 gm/dL (13.0-17.5); Lymphocytes # (A) 2.1 k/uL (1.0-4.8); Lymphocytes % (A) 28 %; MCH 28.5 pg (25.0-35.0); MCHC 34.9 g/dL (31.0-37.0); MCV 81.7 fL (80.0-100.0); Mean Platelet Volume 6.3; Monocytes # (A) 0.4 k/uL (0-1.0); Monocytes % (A) 5 %; Neutrophils # (A) 4.6 k/uL (1.3-7.7); Neutrophils % (A) 61 %; Platelet Count 236 k/uL (150-450); RBC 5.11 m/uL (4.30-5.90); RDW 12.1 % (11.5-15.5); WBC 7.5 k/uL (3.8-10.6)
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
[2019-07-24 19:54] LABS: ALT 29 U/L (21-72); AST 43 U/L (17-59); African American GFR (CKD) >90 (>60 ml/min/1.73 sqM); Albumin 4.7 g/dL (3.5-5.0); Alkaline Phosphatase 60 U/L (38-126); Anion Gap 12 mmol/L; Blood Urea Nitrogen 17 mg/dL (9-20); Calcium 9.6 mg/dL (8.4-10.2); Carbon Dioxide 24 mmol/L (22-30); Chloride 103 mmol/L (98-107); Glucose 88 mg/dL (74-99); Magnesium 1.8 mg/dL (1.6-2.3); Potassium 3.8 mmol/L (3.5-5.1); Sodium 139 mmol/L (137-145); Total Bilirubin 0.9 mg/dL (0.2-1.3); Total Protein 7.9 g/dL (6.3-8.2)
[2019-07-24 20:04] LABS: INR 0.9 (<1.2); Partial Thromboplastin Time 26.2 sec (22.0-30.0); Prothrombin Time 10.2 sec (9.0-12.0)
[2019-07-24 20:09] LABS: Appearance,Urine Clear (Clear); Bilirubin,Urine Negative (Negative); Blood,Urine Negative (Negative); Color,Urine Yellow; Glucose,Urine (UA) Negative (Negative); Ketones,Urine 1+ (Negative); Leukocyte Esterase,Urine Negative (Negative); Nitrite,Urine Negative (Negative); PH, Urine 6.5 (5.0-8.0); Protein,Urine Negative (Negative); Specific Gravity,Urine 1.021 (1.001-1.035); Urobilinogen,Urine <2.0 mg/dL (<2.0)
[2019-07-24 20:25] LABS: Amphetamine Screen,Urine Detected (NotDetected); Barbiturate Screen,Urine Not Detected (NotDetected); Benzodiazepines Screen,Urine Detected (NotDetected); Cocaine Screen,Urine Not Detected (NotDetected); Methadone Screen, Urine Not Detected (NotDetected); Opiate Screen,Urine Detected (NotDetected); Oxycodone Screen, Urine Not Detected (NotDetected); Phencyclidine Screen,Urine Not Detected (NotDetected); Tricyclic Antidepressant,Urine Not Detected (NotDetected); Urn Cannabinoid Scrn Not Detected (NotDetected)
== END 2019-07-24 21:15 | disposition home or self-care (01) ==
LOC: EC 18:05
DX: R00.0 Tachycardia, unspecified (principal); R00.2 Palpitations; Z86.79 Personal history of other diseases of the circulatory system; Z88.5 Allergy status to narcotic agent; Z91.048 Other nonmedicinal substance allergy status
CPT/HCPCS: 36415; 80053; 80306; 81003; 83735; 84443; 84484; 85025; 85610; 85730; 93005; 96360; 96361; 99285

== ENCOUNTER 2019-10-13 19:32 | Emergency (ER) | payer OTHER ==
[2019-10-13 19:40] VITALS: BP 128/79; PULSE 83; RESP 18; TEMP 97.8
[2019-10-13] MEDS ORDERED: KETOROLAC 60 MG/2 ML VIAL IM STA (20:49)
[2019-10-13] MEDS ORDERED: ORPHENADRINE 30 MG/ML 2 ML VIAL IM STA (20:49)
--- NOTE | 2019-10-13 21:24 | XR ---
EXAMINATION TYPE: XR lumbar spine 2 or 3V DATE OF EXAM: 10/13/2019 COMPARISON: 02/25/2018 HISTORY: Low back pain TECHNIQUE: 3 views FINDINGS: Lumbar vertebra have normal spacing and alignment. Posterior elements are intact. Sacroilia c joints appear normal. There is no compression fracture. IMPRESSION: Negative lumbar spine exam. No change.
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
== END 2019-10-13 21:50 | disposition home or self-care (01) ==
LOC: EC 19:32
DX: S39.012A Strain of muscle, fascia and tendon of lower back, initial encounter (principal); Z88.5 Allergy status to narcotic agent; Z91.048 Other nonmedicinal substance allergy status; X50.9XXA Other and unspecified overexertion or strenuous movements or postures, initial encounter
CPT/HCPCS: 72100; 99284; 96372 ×2; J2360; J1885

== ENCOUNTER 2020-05-14 17:32 | Emergency (ER) | payer OTHER ==
[2020-05-14 18:44] VITALS: BP 160/91; PULSE 89; RESP 18; TEMP 99.1
[2020-05-14] MEDS ORDERED: AMOXIC-POT CLAV 875-125MG 1 EACH TAB PO STA (18:46)
--- NOTE | 2020-05-14 19:30 | XR ---
EXAMINATION TYPE: XR forearm RT DATE OF EXAM: 05/14/2020 COMPARISON: NONE HISTORY: Cat bite. Pain and swelling. TECHNIQUE: 2 views FINDINGS: Radius and ulna appear intact. I see no fracture nor dislocation. There is a small spur on the olecranon process of the ulna. Carpal bones are intact. IMPRESSION: Negative right forearm exam.
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
[2020-05-14] MEDS ORDERED: KETOROLAC 15 MG/ML 1 ML VIAL IM STA (19:40)
[2020-05-14] MEDS ORDERED: HYDROmorphone 0.5 MG/0.5 ML SYRINGE IM STA (19:52)
[2020-05-14] MEDS ORDERED: MORPHINE SULFATE 4 MG/ML SYRINGE IM STA (19:52)
== END 2020-05-14 20:44 | disposition home or self-care (01) ==
LOC: EC 17:32
DX: S51.851A Open bite of right forearm, initial encounter (principal); Z88.5 Allergy status to narcotic agent; Z91.09 Other allergy status, other than to drugs and biological substances; W55.01XA Bitten by cat, initial encounter
CPT/HCPCS: 73090; 99283; 96372 ×2; J1885; J1170

== ENCOUNTER 2020-05-15 14:53 | Observation (INO) | payer OTHER ==
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
[2020-05-15] MEDS ORDERED: SODIUM CHLORIDE 0.9% 1,000 ML IV STA (15:05)
[2020-05-15] MEDS ORDERED: AMPICILLIN-SULBACTAM 3 GM in SODIUM CHLORIDE 0.9% 100 ML IVPB STA (15:05)
[2020-05-15] MEDS: KETOROLAC 15 MG/ML 1 ML VIAL IVP STA ×2 (15:28→15:30)
[2020-05-15 15:49] LABS: ALT 23 U/L (4-49); AST 24 U/L (17-59); African American GFR (CKD) >90 (>60 ml/min/1.73 sqM); Albumin 4.7 g/dL (3.5-5.0); Alkaline Phosphatase 53 U/L (38-126); Anion Gap 9 mmol/L; Blood Urea Nitrogen 12 mg/dL (9-20); Calcium 9.1 mg/dL (8.4-10.2); Carbon Dioxide 29 mmol/L (22-30); Chloride 102 mmol/L (98-107); Glucose 107 mg/dL (74-99); Non-African American GFR(CKD) >90 (>60 ml/min/1.73 sqM); Potassium 3.2 mmol/L (3.5-5.1); Sodium 140 mmol/L (137-145); Total Bilirubin 0.9 mg/dL (0.2-1.3); Total Protein 7.2 g/dL (6.3-8.2)
[2020-05-15 15:58] LABS: Basophils # (A) 0.1 k/uL (0-0.2); Basophils % (A) 1 %; Eosinophils # (A) 0.4 k/uL (0-0.7); Eosinophils % (A) 4 %; HCT 44.6 % (39.0-53.0); HGB 15.2 gm/dL (13.0-17.5); Lymphocytes # (A) 2.1 k/uL (1.0-4.8); Lymphocytes % (A) 22 %; MCH 28.2 pg (25.0-35.0); MCHC 34.1 g/dL (31.0-37.0); MCV 82.6 fL (80.0-100.0); Mean Platelet Volume 7.3; Monocytes # (A) 0.4 k/uL (0-1.0); Monocytes % (A) 4 %; Neutrophils # (A) 6.8 k/uL (1.3-7.7); Neutrophils % (A) 69 %; Platelet Count 255 k/uL (150-450); RBC 5.39 m/uL (4.30-5.90); RDW 12.6 % (11.5-15.5); WBC 9.8 k/uL (3.8-10.6)
[2020-05-15] MEDS ORDERED: LORazepam 2 MG/ML INJ IV PRN (16:40)
[2020-05-15] MEDS ORDERED: NALOXONE 0.4 MG/ML 1 ML VIAL IV PRN ×2 (16:40→17:15)
[2020-05-15] MEDS: MORPHINE SULFATE 4 MG/ML SYRINGE IV PRN (16:59)
[2020-05-15] MEDS: ONDANSETRON 4 MG/2 ML VIAL IVP PRN (16:59)
[2020-05-15] MEDS: SODIUM CHLORIDE 0.9% 1,000 ML IV SCH (17:05)
[2020-05-15] MEDS ORDERED: KETOROLAC 15 MG/ML 1 ML VIAL IVP PRN (17:15)
[2020-05-15] MEDS ORDERED: ACETAMINOPHEN TAB 325 MG TAB PO PRN (17:15)
[2020-05-15] MEDS ORDERED: XANAX PO PRN (17:17)
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
[2020-05-15] MEDS: HYDROmorphone 0.5 MG/0.5 ML SYRINGE IVP PRN ×2 (18:22→22:28)
[2020-05-15] MEDS: AMPICILLIN-SULBACTAM 3 GM in SODIUM CHLORIDE 0.9% 100 ML IVPB SCH (18:22)
[2020-05-16] MEDS: ALPRAZolam 0.5 MG TAB PO PRN ×2 (00:43→21:33)
[2020-05-16] MEDS: MORPHINE SULFATE 4 MG/ML SYRINGE IV PRN (00:43)
[2020-05-16] MEDS: AMPICILLIN-SULBACTAM 3 GM in SODIUM CHLORIDE 0.9% 100 ML IVPB SCH ×4 (00:45→17:09)
[2020-05-16] MEDS: HYDROmorphone 0.5 MG/0.5 ML SYRINGE IVP PRN ×2 (05:29→08:41)
[2020-05-16] MEDS: SODIUM CHLORIDE 0.9% 1,000 ML IV SCH ×2 (05:29→23:14)
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
[2020-05-16 08:11] LABS: Basophils # (A) 0.1 k/uL (0-0.2); Basophils % (A) 1 %; Eosinophils # (A) 0.4 k/uL (0-0.7); Eosinophils % (A) 6 %; HCT 38.7 % (39.0-53.0); HGB 12.7 gm/dL (13.0-17.5); Lymphocytes % (A) 29 %; MCH 27.2 pg (25.0-35.0); MCHC 32.7 g/dL (31.0-37.0); MCV 83.2 fL (80.0-100.0); Mean Platelet Volume 7.5; Monocytes # (A) 0.4 k/uL (0-1.0); Monocytes % (A) 6 %; Neutrophils % (A) 57 %; Platelet Count 211 k/uL (150-450); RBC 4.65 m/uL (4.30-5.90); RDW 12.8 % (11.5-15.5)
[2020-05-16 08:20] LABS: African American GFR (CKD) >90 (>60 ml/min/1.73 sqM); Anion Gap 4 mmol/L; Blood Urea Nitrogen 16 mg/dL (9-20); Calcium 8.2 mg/dL (8.4-10.2); Carbon Dioxide 30 mmol/L (22-30); Chloride 104 mmol/L (98-107); Glucose 90 mg/dL (74-99); Magnesium 1.8 mg/dL (1.6-2.3); Non-African American GFR(CKD) >90 (>60 ml/min/1.73 sqM); Potassium 3.5 mmol/L (3.5-5.1); Sodium 138 mmol/L (137-145)
[2020-05-16] MEDS: ENOXAPARIN 40 MG/0.4 ML SYRINGE SQ SCH (08:36)
--- NOTE | 2020-05-16 10:56 | P.DS ---
Providers Date of admission: 05/15/20 16:42 Attending physician: Brittany Evans DO Consults: 05/15/20 17:32 Consult Physician Stat Consulting Provider: William Borja Consult Reason/Comments: Cat bite, concern flexor tenosynovitis Do you want consulting provider notified?: Yes 05/16/20 08:47 Consult Physician Routine Consulting Provider: Luis Ochoa Consult Reason/Comments: Cat bite infection of right hand/wrist Do you want consulting provider notified?: Yes Primary care physician: Stated None Hospital Course: 1. Cellulitis of Right Forearm 2. Cat bite 3. History of atrial fibrillation, paroxysmal 4. Asthma 40-year-old man with past medical history of asthma, atrial fibrillation presented after a cat bite injury and infection one day ago which has been rapidly progressing despite antibiotics with now passive and active pain with flexion of the second and third digits concerning for deep tissue infection. Therefore, ortho was consulted and patient placed on IV unasyn. Patient showed significant improvement with one day of IV antibiotics, no longer demonstrating pain with passive and active motion. His hand also had greater range of motion, decreased erythema. He was transitioned to PO augmentin on discharge with instructions to follow up with PCP. Patient Condition at Discharge: Stable Plan - Discharge Summary Discharge Rx Participant: Yes New Discharge Prescriptions: New Acetaminophen Tab [Tylenol] 650 mg PO Q6HR PRN tab PRN Reason: Mild Pain Or Fever > 100.5 Continue Amoxicillin/Potassium Clav [Augmentin 875-125 Tablet] 1 tab PO Q12HR #20 tab Xanax (Unknown Dose) 1 tab PO DAILY PRN PRN Reason: Anxiety Discharge Medication List Amoxicillin/Potassium Clav [Augmentin 875-125 Tablet] 1 tab PO Q12HR #20 tab 05/14/20 [Rx] Xanax (Unknown Dose) 1 tab PO DAILY PRN 05/15/20 [History] Acetaminophen Tab [Tylenol] 650 mg PO Q6HR PRN tab 05/16/20 [Rx] Follow up Appointment(s)/Referral(s): None,Stated [Primary Care Provider] - 1-2 days Patient Instructions/Handouts: Animal Bite (ED) Activity/Diet/Wound Care/Special Instructions: Patient will be admitted Discharge Disposition: HOME SELF-CARE
[2020-05-16] MEDS: ONDANSETRON 4 MG/2 ML VIAL IVP PRN (13:15)
[2020-05-16] MEDS: HYDROcodone/APAP 5-325MG 1 EACH TAB PO PRN ×2 (13:45→21:33)
[2020-05-17] MEDS: AMPICILLIN-SULBACTAM 3 GM in SODIUM CHLORIDE 0.9% 100 ML IVPB SCH ×3 (00:12→12:04)
[2020-05-17] MEDS: HYDROcodone/APAP 5-325MG 1 EACH TAB PO PRN ×2 (02:45→09:24)
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
[2020-05-17 09:11] VITALS: BP 127/71; PULSE 70; RESP 16; TEMP 98.5
[2020-05-17] MEDS: ENOXAPARIN 40 MG/0.4 ML SYRINGE SQ SCH (09:24)
[2020-05-17] MEDS: SODIUM CHLORIDE 0.9% 1,000 ML IV SCH (09:26)
--- NOTE | 2020-05-17 13:55 | PN ---
PROGRESS NOTE DATE OF SERVICE: 05/17/2020 REASON FOR FOLLOWUP: Right forearm cat bite cellulitis. INTERVAL HISTORY: Patient is currently afebrile, has been breathing comfortably. Denies having any chest pain or cough. No nausea. No abdominal pain. Overall pain and discomfort to the right arm has significant decreased. PHYSICAL EXAMINATION: Blood pressure 127/71, pulse of 70, temperature 98.5. He is 97% on room air. General description: The patient is a middle-aged male lying in bed in no distress. Respiratory system: Unlabored breathing, clear to auscultation anteriorly. Heart S1, S2. Regular rate and rhythm. Abdomen soft, no tenderness. The right forearm swelling and redness has decreased. LABS: Blood culture negative. No CBC was done today. DIAGNOSTIC IMPRESSION AND PLAN: Patient with right forearm cat bite cellulitis, failing oral Augmentin IV because of disease. Clinically improved with Unasyn. Will finish therapy with oral Augmentin the patient for about a week and close outpatient followup. MMODL / IJN: [id number] /
== END 2020-05-17 13:00 | disposition home or self-care (01) ==
LOC: EC 14:53 → 1SOBS 16:42
PROVIDERS: ADMIT Internal Medicine; ATTEND Internal Medicine
DX: L03.113 Cellulitis of right upper limb (principal); S51.851A Open bite of right forearm, initial encounter; I48.0 Paroxysmal atrial fibrillation; J45.909 Unspecified asthma, uncomplicated; F90.9 Attention-deficit hyperactivity disorder, unspecified type; E87.6 Hypokalemia; W55.01XA Bitten by cat, initial encounter; Y92.009 Unspecified place in unspecified non-institutional (private) residence as the place of occurrence of the external cause; Z87.19 Personal history of other diseases of the digestive system; Z79.899 Other long term (current) drug therapy; Z88.5 Allergy status to narcotic agent; Z91.048 Other nonmedicinal substance allergy status; Z90.49 Acquired absence of other specified parts of digestive tract
CPT/HCPCS: 96361 ×2; 96366 ×4; 96375 ×2; 96376 ×2; 96365; 99284; 36415; 80053; 80048; 85652; 83605; 83735; 85025 ×2; 86140; 87040; G0378 ×3; J2270 ×2; J2405 ×2; J0295 ×3; J1885 ×2; J1170 ×2

== ENCOUNTER 2020-06-25 23:13 | Emergency (ER) | payer OTHER ==
[2020-06-25 23:22] VITALS: TEMP 98.7
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
[2020-06-25] MEDS ORDERED: LIDOCAINE 1% INJ 10MG/ML (20 ML MDV) SQ ONE (23:54)
[2020-06-25] MEDS ORDERED: IBUPROFEN 400 MG TAB PO STA (23:54)
[2020-06-25] MEDS ORDERED: HYDROcodone/APAP 5-325MG 1 EACH TAB PO STA (23:54)
[2020-06-26 00:04] LABS: Basophils % (A) 1 %; Eosinophils # (A) 0.2 k/uL (0-0.7); Eosinophils % (A) 2 %; HCT 44.3 % (39.0-53.0); HGB 15.4 gm/dL (13.0-17.5); Lymphocytes # (A) 2.2 k/uL (1.0-4.8); Lymphocytes % (A) 30 %; MCH 28.1 pg (25.0-35.0); MCHC 34.8 g/dL (31.0-37.0); MCV 80.6 fL (80.0-100.0); Monocytes # (A) 0.3 k/uL (0-1.0); Monocytes % (A) 4 %; Neutrophils # (A) 4.5 k/uL (1.3-7.7); Neutrophils % (A) 62 %; Platelet Count 291 k/uL (150-450); RDW 12.4 % (11.5-15.5); WBC 7.2 k/uL (3.8-10.6)
[2020-06-26 00:34] LABS: AST 29 U/L (17-59); African American GFR (CKD) >90 (>60 ml/min/1.73 sqM); Albumin 4.9 g/dL (3.5-5.0); Anion Gap 8 mmol/L; Blood Urea Nitrogen 15 mg/dL (9-20); Calcium 9.8 mg/dL (8.4-10.2); Carbon Dioxide 28 mmol/L (22-30); Chloride 105 mmol/L (98-107); Glucose 125 mg/dL (74-99); Non-African American GFR(CKD) >90 (>60 ml/min/1.73 sqM); Potassium 3.3 mmol/L (3.5-5.1); Sodium 141 mmol/L (137-145); Total Bilirubin 0.7 mg/dL (0.2-1.3); Total Protein 7.7 g/dL (6.3-8.2)
[2020-06-26 00:35] LABS: ALT 23 U/L (4-49); Alcohol <10 mg/dL; Alkaline Phosphatase 57 U/L (38-126)
[2020-06-26] MEDS: ACET/COD 300 MG/30 MG STARTER PACK 6 TAB BTL PO STA ×2 (01:17→01:23)
[2020-06-26 01:26] VITALS: BP 125/99; PULSE 109; RESP 18
== END 2020-06-26 01:25 | disposition home or self-care (01) ==
LOC: EC 23:13
DX: S81.012A Laceration without foreign body, left knee, initial encounter (principal); R00.0 Tachycardia, unspecified; Z88.6 Allergy status to analgesic agent; Z91.048 Other nonmedicinal substance allergy status; V20.4XXA Motorcycle driver injured in collision with pedestrian or animal in traffic accident, initial encounter; Y93.55 Activity, bike riding; Y92.410 Unspecified street and highway as the place of occurrence of the external cause
CPT/HCPCS: 36415; 80053; 83605; 85025; 80320; 99284; 12002; J2001

== ENCOUNTER 2020-06-26 19:49 | Emergency (ER) | payer OTHER ==
[2020-06-26 20:02] VITALS: RESP 18; TEMP 98.7
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
[2020-06-26] MEDS ORDERED: CEPHALEXIN 500 MG CAP PO STA (20:37)
--- NOTE | 2020-06-26 21:08 | XR ---
EXAMINATION TYPE: XR knee complete LT DATE OF EXAM: 06/26/2020 COMPARISON: NONE HISTORY: Knee swelling TECHNIQUE: 3 views FINDINGS: There is soft tissue swelling anterior to the patella. I see no definite joint effusion. Th ere is no fracture nor dislocation. Joint spaces are normal. IMPRESSION: Anterior soft tissue swelling. Patella bursitis is possible. No fracture seen.
--- NOTE | 2020-06-26 21:10 | XR ---
EXAMINATION TYPE: XR ankle complete RT DATE OF EXAM: 06/26/2020 COMPARISON: NONE HISTORY: Pain and swelling TECHNIQUE: 3 views FINDINGS: Ankle mortise is anatomic. I see no fracture nor dislocation. IMPRESSION: No fracture seen. Minimal soft tissue swelling noted.
[2020-06-26 22:10] LABS: Basophils % (A) 0 %; Eosinophils # (A) 0.3 k/uL (0-0.7); Eosinophils % (A) 3 %; HCT 41.8 % (39.0-53.0); HGB 14.2 gm/dL (13.0-17.5); Lymphocytes # (A) 1.5 k/uL (1.0-4.8); Lymphocytes % (A) 14 %; MCH 27.5 pg (25.0-35.0); MCV 80.9 fL (80.0-100.0); Mean Platelet Volume 7.3; Monocytes # (A) 0.4 k/uL (0-1.0); Monocytes % (A) 4 %; Neutrophils # (A) 8.7 k/uL (1.3-7.7); Neutrophils % (A) 79 %; Platelet Count 233 k/uL (150-450); RBC 5.16 m/uL (4.30-5.90); RDW 12.2 % (11.5-15.5); WBC 11.1 k/uL (3.8-10.6)
[2020-06-26] MEDS: LORazepam 2 MG/ML INJ IV STA ×2 (22:13→22:18)
[2020-06-26 22:21] LABS: ALT 21 U/L (4-49); AST 34 U/L (17-59); African American GFR (CKD) >90 (>60 ml/min/1.73 sqM); Albumin 4.6 g/dL (3.5-5.0); Alkaline Phosphatase 57 U/L (38-126); Anion Gap 9 mmol/L; Blood Urea Nitrogen 18 mg/dL (9-20); C Reactive Protein 30.4 mg/L (<10.0); Calcium 9.1 mg/dL (8.4-10.2); Carbon Dioxide 26 mmol/L (22-30); Chloride 103 mmol/L (98-107); Glucose 106 mg/dL (74-99); Non-African American GFR(CKD) >90 (>60 ml/min/1.73 sqM); Potassium 3.1 mmol/L (3.5-5.1); Sodium 138 mmol/L (137-145); Total Bilirubin 0.6 mg/dL (0.2-1.3); Total Protein 7.3 g/dL (6.3-8.2)
[2020-06-26] MEDS ORDERED: ACET/COD 300 MG/30 MG STARTER PACK 6 TAB BTL PO STA (23:03)
[2020-06-26 23:40] VITALS: BP 133/107; PULSE 126
== END 2020-06-26 23:40 | disposition home or self-care (01) ==
LOC: EC 19:49
DX: S81.012A Laceration without foreign body, left knee, initial encounter (principal); L03.116 Cellulitis of left lower limb; M79.89 Other specified soft tissue disorders; D72.829 Elevated white blood cell count, unspecified; E87.6 Hypokalemia; R00.0 Tachycardia, unspecified; F90.9 Attention-deficit hyperactivity disorder, unspecified type; Z79.899 Other long term (current) drug therapy; Z88.6 Allergy status to analgesic agent; Z88.8 Allergy status to other drugs, medicaments and biological substances; Z91.048 Other nonmedicinal substance allergy status; V29.9XXA Motorcycle rider (driver) (passenger) injured in unspecified traffic accident, initial encounter
CPT/HCPCS: 36415; 80053; 83605; 85025; 86140; 87040; 73562; 73610; 96365; 96375; 99283; J0690

== ENCOUNTER 2021-01-10 02:59 | Emergency (ER) | payer OTHER ==
[2021-01-10 03:06] VITALS: BP 149/88; PULSE 118; RESP 22; TEMP 97.8
[2021-01-10] MEDS ORDERED: IBUPROFEN 400 MG TAB PO STA (03:17)
[2021-01-10] MEDS ORDERED: HYDROcodone/APAP 5-325MG 1 EACH TAB PO STA (03:17)
--- NOTE | 2021-01-10 03:46 | XR ---
EXAM: XR Right Shoulder Complete, 2 or More Views CLINICAL HISTORY: ITS.REASON XR Reason: injury TECHNIQUE: Two or more views of the right shoulder. COMPARISON: No relevant prior studies available. FINDINGS: Bones/joints: Bilaterally osteophytosis of the acromioclavicular and glenohumeral joints consistent with mild osteoarthritic changes. No acute fracture or dislocation is seen. Soft tissues: Unremarkable. IMPRESSION: Bilaterally osteophytosis of the acromioclavicular and glenohumeral joints consistent with mild osteoarthritic changes. No acute fracture or dislocation is seen.
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
[2021-01-10] MEDS ORDERED: LIDOCAINE 1% INJ 10MG/ML (20 ML MDV) SQ ONE (04:16)
== END 2021-01-10 04:40 | disposition home or self-care (01) ==
LOC: EC 02:59
DX: S61.012A Laceration without foreign body of left thumb without damage to nail, initial encounter (principal); J45.909 Unspecified asthma, uncomplicated; I48.91 Unspecified atrial fibrillation; W22.09XA Striking against other stationary object, initial encounter
CPT/HCPCS: 73030; 99283; 12001; J2001

== ENCOUNTER 2021-05-02 01:00 | Emergency (ER) | payer OTHER ==
[2021-05-02 01:11] VITALS: BP 125/73; TEMP 98.1
[2021-05-02] MEDS ORDERED: SODIUM CHLORIDE 0.9% 1,000 ML IV STA ×2 (01:23)
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
[2021-05-02 01:39] LABS: Basophils # (A) 0.1 k/uL (0-0.2); Basophils % (A) 1 %; Eosinophils # (A) 0.1 k/uL (0-0.7); Eosinophils % (A) 1 %; HCT 43.1 % (39.0-53.0); HGB 15.3 gm/dL (13.0-17.5); Lymphocytes # (A) 1.9 k/uL (1.0-4.8); Lymphocytes % (A) 23 %; MCH 29.3 pg (25.0-35.0); MCHC 35.5 g/dL (31.0-37.0); MCV 82.6 fL (80.0-100.0); Mean Platelet Volume 7.2; Monocytes # (A) 0.4 k/uL (0-1.0); Monocytes % (A) 5 %; Neutrophils # (A) 5.7 k/uL (1.3-7.7); Neutrophils % (A) 69 %; Platelet Count 278 k/uL (150-450); RBC 5.21 m/uL (4.30-5.90); RDW 12.7 % (11.5-15.5); WBC 8.4 k/uL (3.8-10.6)
[2021-05-02 01:49] LABS: ALT 22 U/L (4-49); AST 31 U/L (17-59); African American GFR (CKD) >90 (>60 ml/min/1.73 sqM); Alcohol <10 mg/dL; Alkaline Phosphatase 68 U/L (38-126); Anion Gap 12 mmol/L; Blood Urea Nitrogen 10 mg/dL (9-20); Calcium 10.1 mg/dL (8.4-10.2); Carbon Dioxide 25 mmol/L (22-30); Chloride 102 mmol/L (98-107); Creatine Kinase 86 U/L (55-170); Glucose 109 mg/dL (74-99); Non-African American GFR(CKD) >90 (>60 ml/min/1.73 sqM); Sodium 139 mmol/L (137-145); Total Bilirubin 0.4 mg/dL (0.2-1.3); Total Protein 7.8 g/dL (6.3-8.2)
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
[2021-05-02 01:54] LABS: Partial Thromboplastin Time 23.6 sec (22.0-30.0); Prothrombin Time 10.4 sec (9.0-12.0)
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
--- NOTE | 2021-05-02 02:06 | XR ---
EXAMINATION TYPE: XR shoulder complete RT DATE OF EXAM: 05/02/2021 COMPARISON: 01/10/2021 HISTORY: Pain TECHNIQUE: 3 views FINDINGS: There is no sign of fracture nor dislocation. Joint spaces are normal. AC joint is intact. IMPRESSION: Negative right shoulder exam. No change.
[2021-05-02 02:44] VITALS: PULSE 113; RESP 22
== END 2021-05-02 02:24 | disposition home or self-care (01) ==
LOC: EC 01:00
DX: M25.511 Pain in right shoulder (principal); M54.2 Cervicalgia; M25.572 Pain in left ankle and joints of left foot; M54.9 Dorsalgia, unspecified; I48.91 Unspecified atrial fibrillation; J45.909 Unspecified asthma, uncomplicated; Z79.1 Long term (current) use of non-steroidal anti-inflammatories (NSAID); Z79.899 Other long term (current) drug therapy; Z88.5 Allergy status to narcotic agent; Z88.8 Allergy status to other drugs, medicaments and biological substances; V29.40XA Motorcycle driver injured in collision with unspecified motor vehicles in traffic accident, initial encounter; Y92.410 Unspecified street and highway as the place of occurrence of the external cause
CPT/HCPCS: 93005; 86900; 86901; 80053; 82550; 84484; 85025; 85610; 85730; 86850; 80320; 73030; 73610; 72125; 70450; 71260; 74177; 99285; L0120; Q9967

== ENCOUNTER 2022-05-12 19:52 | Emergency (ER) | payer OTHER ==
[2022-05-12 20:00] VITALS: TEMP 98
[2022-05-12] MEDS ORDERED: MORPHINE SULFATE 4 MG/ML SYRINGE IM STA (20:44)
[2022-05-12] MEDS ORDERED: ONDANSETRON ODT 4 MG TAB PO STA (20:45)
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
[2022-05-12] MEDS ORDERED: KETOROLAC 15 MG/ML 1 ML VIAL IM STA (21:25)
[2022-05-12] MEDS ORDERED: IBUPROFEN 600 MG STARTER PACK 4 TAB BTL PO STA (21:27)
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
[2022-05-12 22:08] VITALS: BP 147/118; PULSE 112; RESP 20
== END 2022-05-12 22:08 | disposition home or self-care (01) ==
LOC: EC 19:52
DX: S62.316A Displaced fracture of base of fifth metacarpal bone, right hand, initial encounter for closed fracture (principal); R22.31 Localized swelling, mass and lump, right upper limb; I48.91 Unspecified atrial fibrillation; J45.909 Unspecified asthma, uncomplicated; Z88.8 Allergy status to other drugs, medicaments and biological substances; Z88.5 Allergy status to narcotic agent; Z91.048 Other nonmedicinal substance allergy status; Z79.1 Long term (current) use of non-steroidal anti-inflammatories (NSAID); X58.XXXA Exposure to other specified factors, initial encounter
CPT/HCPCS: 73130; 99283; 96372 ×2; J2270; J1885

== ENCOUNTER 2022-09-18 18:17 | Emergency (ER) | payer OTHER ==
[2022-09-18 18:41] VITALS: BP 153/101; PULSE 75; RESP 18; TEMP 96.9
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
== END 2022-09-18 20:07 | disposition home or self-care (01) ==
LOC: EC 18:17
DX: K04.7 Periapical abscess without sinus (principal); I10 Essential (primary) hypertension; J45.909 Unspecified asthma, uncomplicated; Z88.8 Allergy status to other drugs, medicaments and biological substances; Z88.6 Allergy status to analgesic agent
CPT/HCPCS: 99282

== ENCOUNTER 2023-09-28 18:35 | Emergency (ER) | payer OTHER ==
[2023-09-28 18:56] VITALS: PULSE 110; RESP 20; TEMP 98
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
[2023-09-28] MEDS ORDERED: ACET/COD 300 MG/30 MG STARTER PACK 6 TAB BTL PO STA (19:24)
[2023-09-28] MEDS ORDERED: AMOXIC-POT CLAV 875MG STARTER PACK 2 TAB BTL PO STA (19:24)
[2023-09-28] MEDS ORDERED: IBUPROFEN 600 MG STARTER PACK 4 TAB BTL PO STA (19:30)
[2023-09-28] MEDS ORDERED: IBUPROFEN 800 MG TAB PO STA (19:30)
== END 2023-09-28 19:35 | disposition home or self-care (01) ==
LOC: EC 18:35
DX: K02.9 Dental caries, unspecified (principal); K04.7 Periapical abscess without sinus; J45.909 Unspecified asthma, uncomplicated; I48.91 Unspecified atrial fibrillation; Z88.5 Allergy status to narcotic agent; Z88.8 Allergy status to other drugs, medicaments and biological substances
CPT/HCPCS: 99283

== ENCOUNTER 2023-12-15 16:43 | Emergency (ER) | payer OTHER ==
[2023-12-15] MEDS: ACETAMINOPHEN TAB 500 MG TAB PO STA (17:15)
[2023-12-15] MEDS: SODIUM CHLORIDE 0.9% 1,000 ML IV ONE (17:16)
[2023-12-15] MEDS: LORATADINE-PSEUDOEPH 5-120 MG 1 EACH TAB.ER.12H PO STA (17:43)
[2023-12-15 18:26] VITALS: TEMP 99.5
[2023-12-15 18:28] LABS: Appearance,Urine Clear (Clear); Bilirubin,Urine Negative (Negative); Blood,Urine Trace (Negative); Color,Urine Colorless; Glucose,Urine (UA) Negative (Negative); Ketones,Urine Negative (Negative); Leukocyte Esterase,Urine Negative (Negative); Nitrite,Urine Negative (Negative); PH, Urine 5.5 (5.0-8.0); Protein,Urine Negative (Negative); RBC,Urine 1 /hpf (0-5); Specific Gravity,Urine 1.009 (1.001-1.035); Urobilinogen,Urine <2.0 mg/dL (<2.0)
--- NOTE | 2023-12-15 19:34 | XR ---
EXAMINATION TYPE: XR chest 2V DATE OF EXAM: 12/15/2023 7:04 PM CLINICAL INDICATION:Male, 43 years old with history of cough; COMPARISON: Chest radiographs from 11/07/2018 TECHNIQUE: XR chest 2V Frontal and lateral views of the chest. FINDINGS: Lungs/Pleura: There is no evidence of pleural effusion, focal consolidation, or pneumothorax. Pulmonary vascularity: Unremarkable. Heart/mediastinum: Cardiomediastinal silhouette is unremarkable. Musculoskeletal: No acute osseous pathology. IMPRESSION: No acute cardiopulmonary disease/process.
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
[2023-12-15 20:32] VITALS: BP 143/98; PULSE 115; RESP 18
== END 2023-12-15 20:13 | disposition home or self-care (01) ==
LOC: EC 16:43
DX: H69.93 Unspecified Eustachian tube disorder, bilateral (principal); H65.03 Acute serous otitis media, bilateral; J45.909 Unspecified asthma, uncomplicated; Z88.8 Allergy status to other drugs, medicaments and biological substances; Z20.822 Contact with and (suspected) exposure to COVID-19
CPT/HCPCS: 71046; 81001; 87636; 93005; 96360; 96361; 99284

== ENCOUNTER 2024-01-26 14:44 | Emergency (ER) | payer OTHER ==
[2024-01-26 15:02] VITALS: RESP 18
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
[2024-01-26] MEDS: IBUPROFEN 600 MG STARTER PACK 4 TAB BTL PO STA (15:57)
[2024-01-26] MEDS: ACET/COD 300 MG/30 MG STARTER PACK 6 TAB BTL PO STA (15:57)
[2024-01-26] MEDS: methylPREDNISolone SOD SUCCI 125 MG/2 ML VIAL IM ONE (15:57)
[2024-01-26 16:19] VITALS: BP 136/89; PULSE 115; TEMP 98.1
== END 2024-01-26 16:05 | disposition home or self-care (01) ==
LOC: EC 14:44
DX: K04.7 Periapical abscess without sinus (principal); Z88.5 Allergy status to narcotic agent; Z88.8 Allergy status to other drugs, medicaments and biological substances; Z91.048 Other nonmedicinal substance allergy status
CPT/HCPCS: 99283; 96372; J2919

== ENCOUNTER 2024-08-08 18:57 | Emergency (ER) | payer OTHER ==
[2024-08-08 19:37] VITALS: BP 124/85; PULSE 81; RESP 20; TEMP 98
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
[2024-08-08 20:30] LABS: Basophils # (A) 0.1 k/uL (0-0.2); Basophils % (A) 1 %; Eosinophils # (A) 0.3 k/uL (0-0.7); Eosinophils % (A) 4 %; HCT 44.6 % (39.0-53.0); HGB 15.1 gm/dL (13.0-17.5); Lymphocytes # (A) 2.8 k/uL (1.0-4.8); Lymphocytes % (A) 36 %; MCH 28.5 pg (25.0-35.0); MCHC 33.9 g/dL (31.0-37.0); MCV 84.1 fL (80.0-100.0); Mean Platelet Volume 7.6; Monocytes # (A) 0.4 k/uL (0-1.0); Monocytes % (A) 5 %; Neutrophils # (A) 4.2 k/uL (1.3-7.7); Neutrophils % (A) 53 %; Platelet Count 270 k/uL (150-450); RDW 12.9 % (11.5-15.5); WBC 7.9 k/uL (3.8-10.6)
[2024-08-08 20:47] LABS: ALT 30 U/L (4-49); AST 26 U/L (17-59); African American GFR (CKD) >90 (>60 ml/min/1.73 sqM); Albumin 4.5 g/dL (3.5-5.0); Alkaline Phosphatase 58 U/L (38-126); Anion Gap 5 mmol/L; Blood Urea Nitrogen 16 mg/dL (9-20); Carbon Dioxide 29 mmol/L (22-30); Chloride 106 mmol/L (98-107); Glucose 74 mg/dL (74-99); Non-African American GFR(CKD) >90 (>60 ml/min/1.73 sqM); Sodium 140 mmol/L (137-145); Total Bilirubin 0.4 mg/dL (0.2-1.3); Total Protein 7.2 g/dL (6.3-8.2)
[2024-08-08 20:51] LABS: INR 0.9 (<1.2); Prothrombin Time 10.4 sec (10.0-12.5)
[2024-08-08 21:04] LABS: Appearance,Urine Clear (Clear); Bilirubin,Urine Negative (Negative); Blood,Urine Negative (Negative); Color,Urine Colorless; Glucose,Urine (UA) Negative (Negative); Ketones,Urine Negative (Negative); Leukocyte Esterase,Urine Negative (Negative); Nitrite,Urine Negative (Negative); PH, Urine 5.5 (5.0-8.0); Protein,Urine Negative (Negative); Specific Gravity,Urine 1.014 (1.001-1.035); Urobilinogen,Urine <2.0 mg/dL (<2.0)
--- NOTE | 2024-08-08 21:26 | CT ---
EXAMINATION TYPE: CT brain wo con DATE OF EXAM: 08/08/2024 8:55 PM COMPARISON: None. CLINICAL INDICATION: Male, 44 years old with history of Dizziness, Pt c/o increased dizziness x 1 mon th. pt states he passed out 3 times today- last time on toilet. TECHNIQUE: Brain: Axial CT images of the brain were obtained with coronal and sagittal reformats created and rev iewed. Contrast used: None. Oral contrast used: None. CT DLP: 1211.7 mGycm, Automated exposure control for dose reduction was used. FINDINGS: Brain: Extra-axial spaces: No abnormal extra-axial fluid collections. Ventricular system: Within normal limits Cerebral parenchyma: No acute intraparenchymal hemorrhage or mass effect. The chandra-white junction is well differentiated. Cerebellum: Unremarkable. Mass effect: No evidence of midline shift. Intracranial vasculature: unremarkable Soft tissues: Normal. Calvarium/osseous structures: No depressed skull fracture. Paranasal sinuses and mastoid air cells: Mild scattered paranasal sinus disease. Visualized orbits: Orbital contents are intact. IMPRESSION: No acute intracranial process. [facility], , 08/08/2024 9:24 PM
[2024-08-08 21:36] LABS: Amphetamine Screen,Urine Not Detected (NotDetected); Barbiturate Screen,Urine Not Detected (NotDetected); Benzodiazepines Screen,Urine Not Detected (NotDetected); Cocaine Screen,Urine Not Detected (NotDetected); Methadone Screen, Urine Not Detected (NotDetected); Opiate Screen,Urine Detected (NotDetected); Oxycodone Screen, Urine Not Detected (NotDetected); Phencyclidine Screen,Urine Not Detected (NotDetected); Tricyclic Antidepressant,Urine Not Detected (NotDetected); Urn Cannabinoid Scrn Not Detected (NotDetected)
== END 2024-08-08 23:38 | disposition home or self-care (01) ==
LOC: EC 18:57
DX: R55 Syncope and collapse (principal); Z88.5 Allergy status to narcotic agent; Z88.8 Allergy status to other drugs, medicaments and biological substances
CPT/HCPCS: 36415; 70450; 80053; 80306; 81003; 83735; 84484; 85025; 85610; 93005; 99284

== ENCOUNTER 2024-08-11 16:47 | Emergency (ER) | payer OTHER ==
[2024-08-11 17:10] VITALS: TEMP 98.4
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
[2024-08-11] MEDS: AMOXIC-POT CLAV 875-125MG 1 EACH TAB PO STA (20:26)
[2024-08-11] MEDS: IBUPROFEN 600 MG TAB PO STA (20:26)
[2024-08-11 20:32] VITALS: BP 161/98; PULSE 99; RESP 16
== END 2024-08-11 20:31 | disposition home or self-care (01) ==
LOC: EC 16:47
DX: H66.92 Otitis media, unspecified, left ear (principal); Z88.5 Allergy status to narcotic agent; Z88.8 Allergy status to other drugs, medicaments and biological substances
CPT/HCPCS: 99284

== ENCOUNTER 2024-08-20 17:38 | Emergency (ER) | payer OTHER ==
[2024-08-20 18:40] VITALS: RESP 18
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
--- NOTE | 2024-08-20 20:47 | CT ---
EXAMINATION TYPE: CT brain cspine wo con DATE OF EXAM: 08/20/2024 8:28 PM COMPARISON: Previous CT brain study dated 08/08/2024. CLINICAL INDICATION: Male, 44 years old with history of pain; FELL [facility] [employer] [facility] OUTSIDE TECHNIQUE: Brain: Multiple axial CT images of the brain were obtained without IV contrast. Cspine: Axial CT images from the skull base to the inferior aspect of T2 we obtained without intraven ous contrast. Coronal and sagittal reformatted images were also reviewed. . CT DLP: 1375 mGycm, Automated exposure control for dose reduction was used. FINDINGS: Brain: No acute intracranial hemorrhage, midline shift or mass effect. No sizable extra axial fluid collecti on. Basal cisterns appear patent. [place]-white matter differentiation appears acutely preserved. Ventri cles and sulci are within normal limits. No large scalp hematoma or depressed calvarial fracture. Par anasal sinuses and mastoid air cells appear patent. Cervical spine: Normal alignment of the cervical spine. Mild multilevel intervertebral disc space loss. No evidence o f high-grade spinal canal stenosis. No acute fractures or metastatic subluxation. No significant prev ertebral soft tissue swelling. Partially visualized lung apices demonstrates no acute pathology. Ther e are varying degrees of neural foraminal narrowing secondary to uncovertebral/facet hypertrophy. Non specific mildly prominent cervical chain lymph nodes bilaterally, considered CT neck outpatient IV co ntrast clinically warranted for further evaluation. IMPRESSION: 1. No acute cranial abnormality. 2. No acute fracture or traumatic dilatation of the cervical spine. [facility], , 08/20/2024 8:45 PM
--- NOTE | 2024-08-20 21:38 | XR ---
EXAMINATION TYPE: XR shoulder complete BILAT DATE OF EXAM: 08/20/2024 9:32 PM COMPARISON: Previous right shoulder radiograph 05/02/2021. CLINICAL INDICATION: Male, 44 years old with history of right shoulder injury; [facility] TECHNIQUE: XR shoulder complete BILAT; examined in AP, internally rotated and scapular Y projections. FINDINGS: No acute fracture or dislocation. No unexpected radiopaque foreign body. No focal osseous erosion or aggressive periosteal reaction. Partially visualized lung appears clear. Mild bilateral degenerative arthritis of the glenohumeral and acromioclavicular joints. IMPRESSION: No acute fracture or dislocation. [facility], , 08/20/2024 9:36 PM
--- NOTE | 2024-08-20 21:39 | XR ---
EXAMINATION TYPE: XR Hip Complete RT DATE OF EXAM: 08/20/2024 9:34 PM COMPARISON: Previous radiograph dated 04/01/2019. CLINICAL INDICATION: Male, 44 years old with history of right hip injury; [facility] TECHNIQUE: XR Hip Complete RT; Frontal and lateral views FINDINGS: No evidence for acute process, joint dislocation or significant soft tissue swelling. 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 IMPRESSION: No acute osseous abnormality. [facility], , 08/20/2024 9:37 PM
[2024-08-20 22:57] VITALS: BP 137/84; PULSE 78; TEMP 98.4
== END 2024-08-20 22:20 | disposition home or self-care (01) ==
LOC: EC 17:38
DX: S46.911A Strain of unspecified muscle, fascia and tendon at shoulder and upper arm level, right arm, initial encounter (principal); S76.011A Strain of muscle, fascia and tendon of right hip, initial encounter; S00.83XA Contusion of other part of head, initial encounter; Z88.5 Allergy status to narcotic agent; Z88.8 Allergy status to other drugs, medicaments and biological substances; Z91.09 Other allergy status, other than to drugs and biological substances; W10.9XXA Fall (on) (from) unspecified stairs and steps, initial encounter
CPT/HCPCS: 70450; 72125; 73502; 99284

== ENCOUNTER 2025-03-05 09:28 | Observation (INO) | payer OTHER ==
[2025-03-05] MEDS: SODIUM CHLORIDE 0.9% 1,000 ML IV SCH (11:16)
[2025-03-05] MEDS: HYDROmorphone 1 MG/ML 1 ML SYRINGE IVP STA (11:17)
[2025-03-05 11:36] LABS: ALT 64 U/L (4-49); AST 42 U/L (17-59); African American GFR (CKD) >90 (>60 ml/min/1.73 sqM); Albumin 4.6 g/dL (3.5-5.0); Alkaline Phosphatase 71 U/L (38-126); Anion Gap 10 mmol/L; Blood Urea Nitrogen 10 mg/dL (9-20); Calcium 9.5 mg/dL (8.4-10.2); Carbon Dioxide 29 mmol/L (22-30); Chloride 102 mmol/L (98-107); Glucose 117 mg/dL (74-99); Non-African American GFR(CKD) >90 (>60 ml/min/1.73 sqM); Potassium 3.3 mmol/L (3.5-5.1); Sodium 141 mmol/L (137-145); Total Bilirubin 0.5 mg/dL (0.2-1.3); Total Protein 7.5 g/dL (6.3-8.2)
[2025-03-05 11:45] LABS: NT-Pro-B-Type Natriuretic Pept 62 pg/mL
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
[2025-03-05] MEDS ORDERED: NALOXONE 0.4 MG/ML 1 ML VIAL IV PRN (12:27)
--- NOTE | 2025-03-05 13:54 | CT ---
EXAMINATION TYPE: CT brain wo con DATE OF EXAM: 03/05/2025 COMPARISON: 08/20/2024 CLINICAL INDICATION: Male, 44 years old with history of Numerous episodes of unexplained syncope; PHH , Nuemrous episodes of unexplained syncope CT DLP: 1186.5 mGycm Automated exposure control for dose reduction was used. Findings: The ventricles, basal cisterns and sulci over the convexities are within normal limits and there is n o mass effect or shift of midline structures. No abnormal density is seen throughout the brain parenchyma and there is no acute intra or extra-axia l hemorrhage. The posterior fossa including the brainstem, fourth ventricle and cerebellar pontine angles appear no rmal. Intraorbital contents appear normal and symmetric. Visualized paranasal sinuses and mastoid air cells are well aerated. The calvarium is intact. IMPRESSION: No significant abnormality seen. There is no acute bleed or mass effect. [facility], , 03/05/2025 1:51 PM
--- NOTE | 2025-03-05 14:50 | US ---
EXAMINATION TYPE: US extremity nonvasc mass ANGIE DATE OF EXAM: 03/05/2025 COMPARISON: NONE CLINICAL INDICATION: Male, 44 years old with history of b/l swelling of feet; pt states swelling of b ilateral feet x 1 week. Scab on left anterior foot from shoe rubbing. Per resident, scan bilateral fe et to rule out abscess. TECHNIQUE: Bilateral anterior feet scanned FINDINGS: Edema noted in right foot. No other obvious abnormality found on today's exam. IMPRESSION: 1. No suspicious collections to suggest abscess formation. 2. Edema is present. [facility], , 03/05/2025 2:48 PM
[2025-03-05 16:19] LABS: Basophils # (A) 0.08 10*3/uL (0.00-0.10); Eosinophils # (A) 0.37 10*3/uL (0.04-0.35); Eosinophils % (A) 4.7 %; HCT 36.7 % (39.6-50.0); HGB 12.8 g/dL (13.0-17.0); Lymphocytes # (A) 2.54 10*3/uL (0.90-5.00); Lymphocytes % (A) 32.6 %; MCH 28.5 pg (27.0-32.0); MCHC 34.9 g/dL (32.0-37.0); MCV 81.7 fL (80.0-97.0); Mean Platelet Volume 9.2 fL (9.5-12.2); Monocytes # (A) 0.45 10*3/uL (0.20-1.00); Monocytes % (A) 5.8 %; Neutrophils # (A) 4.34 10*3/uL (1.80-7.70); Neutrophils % (A) 55.6 %; Platelet Count 242 10*3/uL (140-440); RBC 4.49 10*6/uL (4.40-5.60); RDW 12.3 % (11.5-14.5)
[2025-03-05] MEDS ORDERED: IBUPROFEN 400 MG TAB PO PRN (16:38)
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
[2025-03-05] MEDS: POTASSIUM CHLORIDE ER 20 MEQ TAB.ER PO STA (17:00)
[2025-03-05] MEDS: predniSONE 20 MG TAB PO SCH (17:00)
[2025-03-05] MEDS: HYDROcodone/APAP 5-325MG 1 EACH TAB PO PRN (17:01)
--- NOTE | 2025-03-05 17:33 | XR ---
EXAMINATION TYPE: XR ankle complete bilateral DATE OF EXAM: 03/05/2025 CLINICAL INDICATION: Male, 44 years old with history of severe pain and swelling, concern for inflamm atory, pain TECHNIQUE: Frontal, lateral and oblique images of the bilateral ankles are obtained. COMPARISON: Bilateral ankle x-rays 2020 and 2019. FINDINGS: There is no acute fracture/dislocation evident in is either ankle. The ankle mortise appe ars within normal limits bilaterally. The overlying soft tissue appears unremarkable bilaterally. No suspicious bony destruction. IMPRESSION: Unremarkable study. [facility], , 03/05/2025 5:31 PM
[2025-03-05] MEDS: DULoxetine HCL 60 MG CAPSULE.DR PO SCH (20:59)
[2025-03-06] MEDS: HYDROcodone/APAP 7.5-325MG 1 EACH TAB PO PRN (01:34)
[2025-03-06 02:31] LABS: Amphetamine Screen,Urine Not Detected (NotDetected); Barbiturate Screen,Urine Not Detected (NotDetected); Benzodiazepines Screen,Urine Not Detected (NotDetected); Cocaine Screen,Urine Not Detected (NotDetected); Methadone Screen, Urine Not Detected (NotDetected); Opiate Screen,Urine Detected (NotDetected); Oxycodone Screen, Urine Not Detected (NotDetected); Phencyclidine Screen,Urine Not Detected (NotDetected); Tricyclic Antidepressant,Urine Not Detected (NotDetected); Urn Cannabinoid Scrn Not Detected (NotDetected)
[2025-03-06] MEDS: PANTOPRAZOLE 40 MG TABLET PO SCH (08:20)
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
--- NOTE | 2025-03-06 08:26 | US ---
EXAMINATION TYPE: US venous doppler duplex LE BI DATE OF EXAM: 03/06/2025 8:15 AM COMPARISON: NONE CLINICAL INDICATION: Male, 44 years old with history of edema; Edema per order. No hx of DVT. Patient does not take blood thinners. TECHNIQUE: The lower extremity deep venous system is examined utilizing real time linear array sonog zenon with graded compression, color doppler sonography, and spectral doppler. SIDE PERFORMED: Bilateral FINDINGS: VESSELS IMAGED: Common Femoral Vein Deep Femoral Vein Greater Saphenous Vein * Femoral Vein Popliteal Vein Small Saphenous Vein * Proximal Calf Veins (* superficial vessels) Right Leg: No evidence of DVT. Left Leg: No evidence of DVT. IMPRESSION: 1. Bilateral lower extremity ultrasound negative for deep venous thrombosis. [facility], , 03/06/2025 8:24 AM
[2025-03-06 08:31] LABS: Basophils # (A) 0.06 10*3/uL (0.00-0.10); Basophils % (A) 0.5 %; Eosinophils # (A) 0.09 10*3/uL (0.04-0.35); Eosinophils % (A) 0.7 %; HCT 37.4 % (39.6-50.0); HGB 12.8 g/dL (13.0-17.0); Lymphocytes # (A) 2.47 10*3/uL (0.90-5.00); Lymphocytes % (A) 19.7 %; MCH 28.4 pg (27.0-32.0); MCHC 34.2 g/dL (32.0-37.0); MCV 83.1 fL (80.0-97.0); Mean Platelet Volume 9.3 fL (9.5-12.2); Monocytes # (A) 0.83 10*3/uL (0.20-1.00); Monocytes % (A) 6.6 %; Neutrophils # (A) 9.04 10*3/uL (1.80-7.70); Neutrophils % (A) 72.3 %; Platelet Count 253 10*3/uL (140-440); RDW 12.5 % (11.5-14.5); WBC 12.52 10*3/uL (4.50-10.00)
[2025-03-06] MEDS: FUROSEMIDE 10 MG/ML 2 ML VIAL IV SCH (09:05)
[2025-03-06 09:11] LABS: African American GFR (CKD) >90 (>60 ml/min/1.73 sqM); Anion Gap 10 mmol/L; Blood Urea Nitrogen 15 mg/dL (9-20); Calcium 8.9 mg/dL (8.4-10.2); Carbon Dioxide 24 mmol/L (22-30); Chloride 106 mmol/L (98-107); Glucose 119 mg/dL (74-99); Non-African American GFR(CKD) >90 (>60 ml/min/1.73 sqM); Potassium 3.4 mmol/L (3.5-5.1); Sodium 140 mmol/L (137-145)
[2025-03-06] MEDS: POTASSIUM CHLORIDE ER 20 MEQ TAB.ER PO STA (11:42)
--- NOTE | 2025-03-06 14:56 | P.PN ---
Subjective Progress Note Date: 03/06/25 Hospital Course: Patient is a 34-year-old male with past medical history of abnormal heart rhyt hm, ulcerative colitis not on medications, not following with GI, stays in remission, , who presented to the ER on 03/05/2025 with bilateral lower extremity pain, multiple syncopal episodes over the past several days. Patient states that he passed out more than 30 times, he denies having any prodromal symptoms and just passes out and finds himself on the ground. He believes he did not hit his head. No confusion after this episode, no shaking activity, no tongue bites, loss of bladder control. Patient denies smoking, alcohol use or drug use. No recent medication changes. He reports having 1 episode of seizure after getting tramadol. He states that the pain started on the left foot 2 weeks ago after he noted significant swelling, he then developed a wound on the top of the foot from rubb ing against his shoes, later he noticed significant swelling and pain on the right foot, cannot bear weight, he states the pain is throbbing, goes up to the bilateral lower extremities. On my examination patient has bilateral swelling around bilateral ankles, pitting, very sensitive to touch, circulation is good with palpable bilateral dorsalis pedis, left foot with wound to the dorsum, no purulence, no surrounding erythema. Recently seen in the ER with left foot pain and left ear pain had unremarkable workup and discharged on some topical antibiotics for the left foot after that episode he started noticing right foot swelling as well with associated pretty severe pain. On admission he was afebrile, tachycardic at 100, blood pressure 160/38, satting well on room air, orthostatic vitals negative. Underwent workup: CBC pending, D-dimer -0.3, BNP 62, normal sodium, potassium low at 3.2, normal bicarb and chloride, creatinine normal, glucose 117, lactic acid 1.0, AST 42 and ALT 64, previously normal in 2023, troponin negative. CT brain showed no significant abnormalities. Lower extremity ultrasound showed no patient's collection to suggest abscess formation, edema present. Patient will be admitted as observation for further evaluation of recurrent syncope and bilateral feet/ankle pain. Ankle x-ray negative, uric acid negative, bilateral lower extremity venous duplex negative. Cardiology started Lasix 20 mg IV twice daily, TTE ordered and pending. 03/06: Patient was seen and examined in the ER, states that the pain is getting somewhat better, swelling is going down. Pertinent positives and negatives as discussed above, a complete review of systems was performed and all other systems are negative. Vitals Signs Reviewed. General: nontoxic, no distress, appears at stated age Derm: warm, dry Head: atraumatic, normocephalic, symmetric Eyes: EOMI, no lid lag, anicteric sclera, pupils equal round reactive to light ENT: Nose and ears atraumatic Neck: No thyromegaly, supple Mouth: no lip lesion, mucus membranes moist Cardiovascular: S1S2 reg, no murmur, no edema Lungs: clear to auscultation bilateral, no rhonchi, no rales, no wheeze, no accessory muscle use Abdominal: soft, nontender to palpation, no guarding, no appreciable organomegaly Ext: no gross muscle atrophy, muscle strength muscle strength 5 out of 5 in all 4 extremities, no contractures,bilateral swelling around bilateral ankles, pitting, very sensitive to touch, circulation is good with palpable bilateral dorsalis pedis, left foot with wound to the dorsum, no purulence, no surrounding erythema Neuro: CN II-XII grossly intact Psych: Alert, oriented, appropriate affect Assessment/Plan: Recurrent syncope - Orthostatic vitals negative - Blood work unrevealing - Continue telemetry - Consult cardiology - TTE pending, IV Lasix 20 twice daily Bilateral feet pain and edema Bilateral ankle swelling - CRP normal - CBC daily - Continue trial of prednisone 40 (bilateral septic arthritis is unlikely, patient does not have any leukocytosis or fever, thus, it is felt that steroids are safe in this situation) -IV Lasix 20 bid -[place] 5 every 4 hours as needed, ibuprofen 400 every 6 hours, will provide with PPI Protonix 40 daily Hypokalemia - Replacement with 40 mEq of oral potassium ordered, monitor BMP Ported history of ulcerative colitis, in remission - Recommend establishing care with GI as outpatient, patient currently does not have a GI doctor, does not take any medications, says that he cannot control his ulcerative colitis with diet, last flare 1 month ago CODE STATUS: Full DVT prophylaxis: SCD Anticipated discharge date: 03/[address]: TBD Objective - Vital Signs Vital signs: Vital Signs Temp 97.9 F 03/06/25 13:48 Pulse 89 03/06/25 13:48 Resp 18 03/06/25 13:48 BP 141/92 03/06/25 13:48 Pulse Ox 99 03/06/25 13:38 FiO2 Intake & Output 03/05/25 03/06/25 03/06/25 18:59 06:59 18:59 Output Total 200 Balance -200 Weight 90.718 kg 90.718 kg Output: Urine 200 Other: Voiding Method Toilet Urinal - Labs CBC & Chem 7: 03/06/25 08:11 03/06/25 08:11 Labs: Abnormal Lab Results - Last 24 Hours (Table) 03/05/25 03/05/25 03/06/25 Range/Units 15:37 17:24 01:02 WBC (4.50-10.00) 10*3/uL Hgb 12.8 L (13.0-17.0) g/dL Hct 36.7 L (39.6-50.0) % MPV 9.2 L (9.5-12.2) fL Neutrophils # (1.80-7.70) 10*3/uL Eosinophils # 0.37 H (0.04-0.35) 10*3/uL Potassium (3.5-5.1) mmol/L Glucose (74-99) mg/dL Prolactin 30.300 H (2.100-17.000) ng/mL Urine Opiates Screen Detected H (NotDetected) 03/06/25 03/06/25 Range/Units 08:11 08:11 WBC 12.52 H (4.50-10.00) 10*3/uL Hgb 12.8 L (13.0-17.0) g/dL Hct 37.4 L (39.6-50.0) % MPV 9.3 L (9.5-12.2) fL Neutrophils # 9.04 H (1.80-7.70) 10*3/uL Eosinophils # (0.04-0.35) 10*3/uL Potassium 3.4 L (3.5-5.1) mmol/L Glucose 119 H (74-99) mg/dL Prolactin (2.100-17.000) ng/mL Urine Opiates Screen (NotDetected)
--- NOTE | 2025-03-06 17:13 | CA ---
Transthoracic Echo Report Name: Juan M Chacon Age: 44 Gender: M : 1980 Exam Date: 03/06/2025 07:24 Exam Location: [facility] Ht (in): 69 Wt (lb): 200 Ordering Physician: Mariel Jensen Attending/Referring Phys: [id number], Mikey Alterations Sewer Viola Jacome, RDRADHA Procedure CPT: Indications: LVF Cardiac Hx: Technical Quality: Good Contrast 1: Total Dose (mL): Contrast 2: Total Dose (mL): MEASUREMENTS (Male / Female) Normal Values 2D ECHO LV Diastolic Diameter PLAX 4.7 cm 4.2 - 5.9 / 3.9 - 5.3 cm LV Systolic Diameter PLAX 3.0 cm IVS Diastolic Thickness 1.1 cm 0.6 - 1.0 / 0.6 - 0.9 cm LVPW Diastolic Thickness 1.1 cm 0.6 - 1.0 / 0.6 - 0.9 cm LV Relative Wall Thickness 0.5 RV Internal Dim ED PLAX 3.4 cm LVOT Diameter 1.9 cm LA Volume 37.1 cm??? 18 - 58 / 22 - 52 cm??? LA Volume Index 17.5 cm???/m??? 16 - 28 cm???/m??? DOPPLER MV Area PHT 3.9 cm??? Mitral E Point Velocity 69.0 cm/s Mitral A Point Velocity 104.7 cm/s Mitral E to A Ratio 0.7 MV Deceleration Time 195.5 ms TR Peak Velocity 228.1 cm/s TR Peak Gradient 20.8 mmHg Right Atrial Pressure 10.0 mmHg Pulmonary Artery Systolic Pressu 30.8 mmHg Right Ventricular Systolic Press 30.8 mmHg FINDINGS Left Ventricle Left ventricular ejection fraction is estimated at 60-65%. Mildly increased septal wall thickness. Normal left ventricular systolic function with no obvious regional wall motion abnormalities. Left ventricular cavity size normal. Right Ventricle Normal right ventricular size and function. Right ventricular systolic pressure within normal limits. Right Atrium Normal right atrial size. Left Atrium Normal left atrial size. Mitral Valve Structurally normal mitral valve. No mitral stenosis, regurgitation or prolapse. Aortic Valve Trileaflet aortic valve. No aortic stenosis. No aortic regurgitation. Tricuspid Valve Structurally normal tricuspid valve. No tricuspid stenosis. Trace tricuspid regurgitation. Pulmonic Valve Structurally normal pulmonic valve. No pulmonic stenosis. Trace to mild pulmonic regurgitation. Pericardium No pericardial effusion. Aorta Normal size aortic root and proximal ascending aorta. CONCLUSIONS LVEF 60 to 65% No obvious regional wall motion abnormality Normal RV size and systolic function with RVSP estimated at 30 mmHg No obvious valvular dysfunction Previewed by: Dr Dusty Day (Electronically Signed) Final Date: 06 March 2025 17:13
[2025-03-06] MEDS: ZOLPIDEM 5 MG TAB PO PRN (22:09)
[2025-03-07 09:04] LABS: African American GFR (CKD) >90 (>60 ml/min/1.73 sqM); Anion Gap 8 mmol/L; Blood Urea Nitrogen 21 mg/dL (9-20); Calcium 8.5 mg/dL (8.4-10.2); Carbon Dioxide 28 mmol/L (22-30); Chloride 103 mmol/L (98-107); Glucose 107 mg/dL (74-99); Non-African American GFR(CKD) >90 (>60 ml/min/1.73 sqM); Potassium 3.3 mmol/L (3.5-5.1); Sodium 139 mmol/L (137-145)
[2025-03-07] MEDS: POTASSIUM CHLORIDE ER 20 MEQ TAB.ER PO STA (09:28)
[2025-03-07] MEDS: SENNOSIDES 8.6 MG TAB PO SCH (13:06)
[2025-03-07 23:45] VITALS: RESP 16
[2025-03-08 07:50] VITALS: TEMP 97.7
--- NOTE | 2025-03-08 10:57 | P.PN ---
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 Patient states that he came into the hospital due to his feet swelling. He states his left foot started swelling 2 weeks ago and came into the emergency center was given ibuprofen and sent home. The last 4 days, his right leg has been swelling. He does not know if he has gained any weight. He states his weight fluctuates between "160 pounds and 240 pounds." He did have some shortness of breath at night while he was lying flat in bed. He occasionally has chest discomfort and this occurred 2 to 3 days ago when he was trying to sleep. He states is a pressure type sensation and lasted for about 3 to 4 hours. It also involves his shoulders. Patient has history of walking to the bathroom and suddenly passing out in the night. When he fell to the floor this woke his up. He denies any symptoms prior to the episode. No cough no fever or chills. He does state he has sweats. He states he was at [facility] 6 years ago and had a stress test done. He also thinks he was supposed to have his heart "zapped" but was not placed on any medications and has not any follow-up with cardiology. He denies history of smoking. He denies drug use. He does have family history of mother from heart failure at age 60. Blood pressure 132/81, heart rate 96, pulse ox 97% on room air. Patient is seen today in the emergency center waiting for a bed on the cardiac stepdown unit. -EKG: EKG sinus rhythm with no acute ST changes. -CT brain: No significant abnormality. -Laboratory studies: WBC 7.8, hemoglobin 12.8. D-dimer 0.26. Potassium 3.3 and was replaced. Creatinine 0.8. ALT 64. Troponin negative x 1. C-reactive protein less than 0.5. proBNP 62. Prolactin 30.3. Drug screen positive for opiates. -Home cardiac medications: None. Progress note 03/07/2025 Patient seen and examined at bedside this a.m. His lower extremity edema has resolved. Hemodynamically stable. No new cardiovascular complaints 03/08/2021 Seen and examined at bedside this a.m. No new cardiovascular complaints. Physical examination: Gen: This is a 44-year-old male in no acute distress VS: reviewed HEENT: Head is atraumatic, normocephalic. Pupils equal, round. Sclerae is anicteric. NECK: Supple. No JVD. LUNGS: Clear to auscultation. No wheezes or rhonchi. No intercostal retractions. HEART: Regular rate and rhythm. No murmur. ABDOMEN: Soft No tenderness. EXTREMITIES: +2 bilateral lower extremity pedal edema. No calf tenderness. NEUROLOGICAL: Patient is awake, alert and oriented x3. Assessment: Syncopal episodes of unclear etiology Rule out cardiomyopathy with family history of mother passing from heart failure at age 60 Palpitations Lower extremity edema Pertinent cardiac testing Echo shows an EF of 60%, no obvious RWMA, no major valvular dysfunction, RVSP is also normal. Orthostatic vital signs are negative NT-proBNP is normal Plan: Consider discharging him on just 20 mg of p.o. Lasix Less likely cardiogenic etiology of lower extremity edema. Most likely dependen t edema Consider outpatient follow-up for a cardiac stress test Consider outpatient follow-up for a event monitor Patient is cleared from cardiovascular standpoint Objective - Vital Signs Vital signs: Vital Signs Temp 97.7 F 03/08/25 07:39 Pulse 82 03/08/25 07:40 Resp 16 03/08/25 07:39 BP 129/92 03/08/25 07:39 Pulse Ox 97 03/08/25 07:39 FiO2 Intake & Output 03/07/25 03/08/25 03/08/25 18:59 06:59 18:59 Intake Total 740 20 250 Output Total 1925 2450 450 Balance -1185 -2430 -200 Weight 91.2 kg Intake: IV 20 20 10 Invasive Line 3 20 20 10 Oral 720 240 Output: Urine 1925 2450 450 Other: Voiding Method Toilet Toilet Toilet Urinal Urinal Urinal # Bowel Movements 1 - Labs CBC & Chem 7: 03/06/25 08:11 03/07/25 08:05 Labs: Microbiology - Last 24 Hours (Table) 03/05/25 11:37 Blood Culture - Preliminary Blood
[2025-03-08 11:04] VITALS: BP 124/86; PULSE 69
--- NOTE | 2025-03-08 11:10 | P.PN ---
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 Patient states that he came into the hospital due to his feet swelling. He states his left foot started swelling 2 weeks ago and came into the emergency center was given ibuprofen and sent home. The last 4 days, his right leg has been swelling. He does not know if he has gained any weight. He states his weight fluctuates between "160 pounds and 240 pounds." He did have some shortness of breath at night while he was lying flat in bed. He occasionally has chest discomfort and this occurred 2 to 3 days ago when he was trying to sleep. He states is a pressure type sensation and lasted for about 3 to 4 hours. It also involves his shoulders. Patient has history of walking to the bathroom and suddenly passing out in the night. When he fell to the floor this woke his up. He denies any symptoms prior to the episode. No cough no fever or chills. He does state he has sweats. He states he was at [facility] 6 years ago and had a stress test done. He also thinks he was supposed to have his heart "zapped" but was not placed on any medications and has not any follow-up with cardiology. He denies history of smoking. He denies drug use. He does have family history of mother from heart failure at age 60. Blood pressure 132/81, heart rate 96, pulse ox 97% on room air. Patient is seen today in the emergency center waiting for a bed on the cardiac stepdown unit. -EKG: EKG sinus rhythm with no acute ST changes. -CT brain: No significant abnormality. -Laboratory studies: WBC 7.8, hemoglobin 12.8. D-dimer 0.26. Potassium 3.3 and was replaced. Creatinine 0.8. ALT 64. Troponin negative x 1. C-reactive protein less than 0.5. proBNP 62. Prolactin 30.3. Drug screen positive for opiates. -Home cardiac medications: None. Progress note 03/07/2025 Patient seen and examined at bedside this a.m. His lower extremity edema has resolved. Hemodynamically stable. No new cardiovascular complaints. Physical examination: HEENT: Head is atraumatic, normocephalic. Pupils equal, round. Sclerae is anicteric. NECK: Supple. No JVD. LUNGS: Clear to auscultation. No wheezes or rhonchi. No intercostal retractions. HEART: Regular rate and rhythm. No murmur. ABDOMEN: Soft No tenderness. EXTREMITIES: +2 bilateral lower extremity pedal edema. No calf tenderness. NEUROLOGICAL: Patient is awake, alert and oriented x3. Assessment: Syncopal episodes of unclear etiology Rule out cardiomyopathy with family history of mother passing from heart failure at age 60 Palpitations Lower extremity edema Pertinent cardiac testing Echo shows an EF of 60%, no obvious RWMA, no major valvular dysfunction, RVSP is also normal. Orthostatic vital signs are negative NT-proBNP is normal Plan: Consider discharging him on just 20 mg of p.o. Lasix Less likely cardiogenic etiology of lower extremity edema. Most likely dependent edema Consider outpatient follow-up for a cardiac stress test Consider outpatient follow-up for a event monitor Objective - Vital Signs Vital signs: Vital Signs Temp 97.7 F 03/08/25 07:39 Pulse 69 03/08/25 11:01 Resp 16 03/08/25 11:01 BP 124/86 03/08/25 11:01 Pulse Ox 97 03/08/25 11:01 FiO2 Intake & Output 03/07/25 03/08/25 03/08/25 18:59 06:59 18:59 Intake Total 740 20 250 Output Total 1925 2450 450 Balance -1185 -2430 -200 Weight 91.2 kg Intake: IV 20 20 10 Invasive Line 3 20 20 10 Oral 720 240 Output: Urine 1925 2450 450 Other: Voiding Method Toilet Toilet Toilet Urinal Urinal Urinal # Bowel Movements 1 - Labs CBC & Chem 7: 03/06/25 08:11 03/07/25 08:05 Labs: Microbiology - Last 24 Hours (Table) 03/05/25 11:37 Blood Culture - Preliminary Blood
--- NOTE | 2025-03-08 12:02 | P.PN ---
Subjective Progress Note Date: 03/07/25 Hospital Course: Patient states that he passed out more than 30 times, he denies having any pro dromal symptoms and just passes out and finds himself on the ground. He believes he did not hit his head. No confusion after this episode, no shaking activity, no tongue bites, loss of bladder control. Patient denies smoking, alcohol use or drug use. No recent medication changes. He reports having 1 episode of seizure after getting tramadol. He states that the pain started on the left foot 2 weeks ago after he noted significant swelling, he then developed a wound on the top of the foot from rubbing against his shoes, later he noticed significant swelling and pain on the right foot, cannot bear weight, he states the pain is throbbing, goes up to the bilateral lower extremities. On my examination patient has bilateral swelling around bilateral ankles, pitting, very sensitive to touch, circulation is good with palpable bilateral dorsalis pedis, left foot with wound to the dorsum, no purulence, no surrounding erythema. Recently seen in the ER with left foot pain and left ear pain had unremarkable workup and discharged on some topical antibiotics for the left foot after that episode he started noticing right foot swelling as well with associated pretty severe pain. On admission he was afebrile, tachycardic at 100, blood pressure 160/38, satting well on room air, orthostatic vitals negative. Underwent workup: CBC pending, D-dimer -0.3, BNP 62, normal sodium, potassium low at 3.2, normal bicarb and chloride, creatinine normal, glucose 117, lactic acid 1.0, AST 42 and ALT 64, previously normal in 2023, troponin negative. CT brain showed no significant abnormalities. Lower extremity ultrasound showed no patient's collection to suggest abscess formation, edema present. Patient will be admitted as observation for further evaluation of recurrent syncope and bilateral feet/ankle pain. Ankle x-ray negative, uric acid negative, bilateral lower extremity venous duplex negative. Cardiology started Lasix 20 mg IV twice daily, TTE ordered showed normal EF. 03/07: Patient was seen and examined , states that the pain is getting somewhat better, swelling is going down. Cardiology recommend outpatient follow-up with possible cardiac stress test, possible event monitor. Pertinent positives and negatives as discussed above, a complete review of systems was performed and all other systems are negative. Vitals Signs Reviewed. General: [nontoxic], [no distress], [appears at stated age] Derm: [warm], [dry] Head: [atraumatic], [normocephalic], [symmetric] Eyes: [EOMI], [no lid lag], [anicteric sclera] Mouth: [no lip lesion], [mucus membranes moist] Cardiovascular: [S1S2 reg], [no murmur] Lungs: [CTA bilateral], [no rhonchi, no rales] , [no accessory muscle use] Abdominal: [soft], [ nontender to palpation], [no guarding], [no appreciable organomegaly] Ext: [no gross muscle atrophy], [mild residual ankle edema bilaterally [no contractures] Neuro: [ CN II-XI grossly intact], [no focal neuro deficits] Psych: [Alert], [oriented], [appropriate affect] Assessment and Plan: Recurrent syncope - Orthostatic vitals negative - Blood work unrevealing - Continue telemetry - Consult cardiology - TTE pending, IV Lasix 20 twice daily Bilateral feet pain and edema Bilateral ankle swelling - CRP normal - CBC daily - Continue trial of prednisone 40 (bilateral septic arthritis is unlikely, patient does not have any leukocytosis or fever, thus, it is felt that steroids are safe in this situation) -IV Lasix 20 bid -[place] 5 every 4 hours as needed, ibuprofen 400 every 6 hours, will provide with PPI Protonix 40 daily -Cardiology recommendations reviewed as above Hypokalemia -3.3, normal creatinine 0.97 - Replacement with 40 mEq of oral potassium ordered, monitor BMP Ported history of ulcerative colitis, in remission - Recommend establishing care with GI as outpatient, patient currently does not have a GI doctor, does not take any medications, says that he cannot control his ulcerative colitis with diet, last flare 1 month ago CODE STATUS: Full DVT prophylaxis: SCD Anticipated discharge date: 03/[address]: TBD Objective - Vital Signs Vital signs: Vital Signs Temp 97.7 F 03/08/25 07:39 Pulse 69 03/08/25 11:01 Resp 16 03/08/25 11:01 BP 124/86 03/08/25 11:01 Pulse Ox 97 03/08/25 11:01 FiO2 Intake & Output 03/07/25 03/08/25 03/08/25 18:59 06:59 18:59 Intake Total 740 20 250 Output Total 1925 2450 450 Balance -0260 -6609 -200 Weight 91.2 kg Intake: IV 20 20 10 Invasive Line 3 20 20 10 Oral 720 240 Output: Urine 1924 2450 450 Other: Voiding Method Toilet Toilet Toilet Urinal Urinal Urinal # Bowel Movements 1 - Labs CBC & Chem 7: 03/06/25 08:11 03/07/25 08:05 Labs: Microbiology - Last 24 Hours (Table) 03/05/25 11:37 Blood Culture - Preliminary Blood
--- NOTE | 2025-03-08 12:03 | P.DS ---
Providers Date of admission: 03/05/25 12:29 Attending physician: Dwight Grajeda Consults: 03/05/25 16:32 Consult Physician Routine Consulting Provider: Dickson Robb Consult Reason/Comments: recurrent syncope, no prodrome Do you want consulting provider notified?: Yes Primary care physician: Stated None Hospital Course: Discharge Diagnosis: Recurrent syncope Bilateral feet pain and ankle edema Hypokalemia Reported history of ulcerative colitis in remission, not following with GI Hospital Course: Patient states that he passed out more than 30 times, he denies having any prodromal symptoms and just passes out and finds himself on the ground. He believes he did not hit his head. No confusion after this episode, no shaking activity, no tongue bites, loss of bladder control. Patient denies smoking, alcohol use or drug use. No recent medication changes. He reports having 1 episode of seizure after getting tramadol. He states that the pain started on the left foot 2 weeks ago after he noted significant swelling, he then developed a wound on the top of the foot from rubbing against his shoes, later he noticed significant swelling and pain on the right foot, cannot bear weight, he states the pain is throbbing, goes up to the bilateral lower extremities. On my examination patient has bilateral swelling around bilateral ankles, pitting, very sensitive to touch, circulation is good with palpable bilateral dorsalis pedis, left foot with wound to the dorsum, no purulence, no surrounding erythema. Recently seen in the ER with left foot pain and left ear pain had unremarkable workup and discharged on some topical antibiotics for the left foot after that episode he started noticing right foot swelling as well with associated pretty severe pain. On admission he was afebrile, tachycardic at 100, blood pressure 160/38, satting well on room air, orthostatic vitals negative. Underwent workup: CBC pending, D-dimer -0.3, BNP 62, normal sodium, potassium low at 3.2, normal bicarb and chloride, creatinine normal, glucose 117, lactic acid 1.0, AST 42 and ALT 64, previously normal in 2023, troponin negative. CT brain showed no significant abnormalities. Lower extremity ultrasound showed no patient's collection to suggest abscess formation, edema present. Patient will be admitted as observation for further evaluation of recurrent syncope and bilateral feet/ankle pain. Ankle x-ray negative, uric acid negative, bilateral lower extremity venous duplex negative. Cardiology started Lasix 20 mg IV twice daily, TTE ordered showed normal EF. 03/08: Patient was seen and examined , states that the pain is getting somewhat better, swelling is going down. Patient will be discharged on oral Lasix 20 for 14 days along with potassium chloride 20 mEq, recommended to establish care with primary care physician for close monitoring. Discussed with cardiology, patient to follow-up in outpatient settings for possible stress test and event monitor, can be discharged on oral Lasix 20. Patient feels back to baseline with some mild residual pain. He is comfortable with discharge plan Patient seen and examined at bedside.[] Vital signs reviewed and stable. General: [nontoxic], [no distress], [appears at stated age] Derm: [warm], [dry] Head: [atraumatic], [normocephalic], [symmetric] Eyes: [EOMI], [no lid lag], [anicteric sclera] Mouth: [no lip lesion], [mucus membranes moist] Cardiovascular: [S1S2 reg], [no murmur] Lungs: [CTA bilateral], [no rhonchi, no rales] , [no accessory muscle use] Abdominal: [soft], [ nontender to palpation], [no guarding], [no appreciable organomegaly] Ext: [no gross muscle atrophy], [no ankle swelling, tenderness to palpation [no contractures] Neuro: [ CN II-XI grossly intact], [no focal neuro deficits] Psych: [Alert], [oriented], [appropriate affect] A total of 40 minutes of time were spent preparing this complex discharge summary. Patient was discharged on 03/08/2025 Plan - Discharge Summary Discharge Rx Participant: Yes New Discharge Prescriptions: New Potassium Chloride [Klor-Con M20] 20 meq PO DAILY #14 tab Furosemide [Lasix] 20 mg PO DAILY #14 tab HYDROcodone/APAP 5-325MG [[place] 5-325] 1 each PO Q4HR PRN #18 tab PRN Reason: Moderate Pain (Scale 4 To 6) Continue DULoxetine HCL [Cymbalta] 60 mg PO BID Discharge Medication List DULoxetine HCL [Cymbalta] 60 mg PO BID 03/05/25 [History] Furosemide [Lasix] 20 mg PO DAILY #14 tab 03/07/25 [Rx] HYDROcodone/APAP 5-325MG [[place] 5-325] 1 each PO Q4HR PRN #18 tab 03/07/25 [Rx] Potassium Chloride [Klor-Con M20] 20 meq PO DAILY #14 tab 03/07/25 [Rx] Follow up Appointment(s)/Referral(s): Anselmo Diana DO [REFERRING] - 1 Week None,Stated [Primary Care Provider] - 1-2 days Patient Instructions/Handouts: Leg Edema (ED) Activity/Diet/Wound Care/Special Instructions: Please, establish care with PCP and follow up regularly. Consider seeing GI for your ulcerative colitis/ Discharge Disposition: HOME SELF-CARE
== END 2025-03-08 12:52 | disposition home or self-care (01) ==
LOC: EC 09:28 → 3SCARD 12:29
PROVIDERS: ADMIT Student in an Organized Health Care Education/Training Program; ATTEND Student in an Organized Health Care Education/Training Program
DX: R55 Syncope and collapse (principal); R00.2 Palpitations; E87.6 Hypokalemia; R60.0 Localized edema; M25.471 Effusion, right ankle; M25.472 Effusion, left ankle; M79.604 Pain in right leg; M79.605 Pain in left leg; M79.671 Pain in right foot; M79.672 Pain in left foot; M79.89 Other specified soft tissue disorders; I48.91 Unspecified atrial fibrillation; J45.909 Unspecified asthma, uncomplicated; Z79.899 Other long term (current) drug therapy; W18.30XA Fall on same level, unspecified, initial encounter; Z82.49 Family history of ischemic heart disease and other diseases of the circulatory system
CPT/HCPCS: 96376 ×3; 96374 ×3; 99285; 36415; 93005; 93306; 85379; 83880; 80053; 80048 ×2; 83605; 84550; 84484 ×2; 85025 ×2; 86140; 84146; 87040; 80306; 73610; 76882; 93970; 70450; G0378 ×4; J1171; J7512 ×4; J1938 ×3; 85652